=== PATIENT | male | born 1950 | race Caucasian/White ===

== ENCOUNTER 2024-01-10 06:54 | Outpatient (OUT) | payer MEDICARE, SELFPAY ==
--- NOTE | 2024-01-10 07:04 | CA_ITS ---
Patient Name: ROXANA RAGLAND MR#: [id number] : 1950 Exam Date: 01/10/2024 Ordering Doctor: DR COY SIMONS M.D. ECHOCARDIOGRAM REPORT PROCEDURE: CA ECHO DOPPLER COMPLETE INDICATIONS: Nonrheumatic AoV Stenosis, Shortness of breath COMPARISON: None. DESCRIPTION: COMPLETE ECHOCARDIOGRAM Real-time transthoracic echocardiography with 2D, M-mode, spectral and color flow Doppler performed. QUALITY: Technical quality was good. LEFT VENTRICLE: Normal chamber size. Moderate concentric left ventricular hypertrophy. Global left ventricular systolic function is normal. LV EF: Visual estimation of left ventricular ejection fraction is 65% DIASTOLIC: Diastolic function is indeterminate. ATRIAL SEPTUM: LEFT ATRIUM: Mild dilatation. RIGHT ATRIUM: Mild dilatation. RIGHT VENTRICLE: Normal chamber size. Normal right ventricular systolic function. TRICUSPID VALVE: Normal mobility and thickness. No stenosis with mild to moderate regurgitation. No evidence of pulmonary hypertension. RVSP 34 mmHg MITRAL VALVE: Normal mobility and thickness. No evidence of mitral valve stenosis. There is no mitral annular calcification. Mild mitral regurgitation. AORTIC VALVE: Normal trileaflet appearance. Moderately calcified aortic valve. Moderately diminished mobility. Doppler velocity suggests moderate aortic valve stenosis. DVI 0.3, GUSTAVO 1.0 cm?, Vmax 3.1 m/s, Mean gradient 22 mmHg. No aortic regurgitation. AORTIC ROOT: Normal diameter and appearance. PULMONIC VALVE: Normal thickness and mobility. No stenosis. Trivial regurgitation. PERICARDIUM: No evidence of pericardial effusion. IVC: Collapses with inspirations. Normal size. PLEURA: CONCLUSION: 1. Moderate concentric left ventricular hypertrophy with normal systolic function. LVEF is estimated at 65%. 2. Normal right ventricular size and systolic function. 3. Moderate aortic valve stenosis. 4. Mild to moderate tricuspid regurgitation. 5. Mild mitral regurgitation. 6. Normal right-sided pressures. Adult Echocardiography Procedure Report Left Ventricle LVEDD (3.7 - 5.6 cm): 4.18 cm LVESD (2.2 - 4.0 cm): 2.58 cm LVIVS thickness (0.6 - 1.2 cm): 1.36 cm LVPW thickness (0.5 - 1.0 cm): 1.22 cm e': 0.09 m/s E - e': 7.47 LVOT Max Gradient: 3.42 mm[Hg] LVOT Area (cm2): 0.92 m/s Peak Velocity (LVOT): 0.92 m/s Mean Velocity (LVOT): 0.62 m/s LVOT Diameter 1.98 cm Left Ventricular Ejection Fraction: 72.59 % Left Atrium LA Volume Index (2D A2C): 21.79 ml/m2 Left Atrium Systolic Dimension: 2.93 cm Mitral Valve MV E to A Ratio: 0.92 Mitral Valve A-Wave Peak Velocity: 0.70 m/s Mitral Valve E-Wave Peak Velocity: 0.65 m/s Right Ventricle RV Internal Diastolic Dimension: 3.82 cm Aorta AO Root Diam: 3.20 cm Ascending Ao Diam: 2.63 cm Aortic Valve AoV Area (Peak Win): 0.93 cm2, 0.91 cm2 AoV Area (VTI): 1.00 cm2, 0.95 cm2 Peak Velocity(Antegrade Flow): 3.13 m/s, 2.93 m/s, 3.15 m/s Peak Gradient(Antegrade Flow): 39.30 mm[Hg], 34.31 mm[Hg], 39.69 mm[Hg] Mean Velocity(Antegrade Flow): 2.22 m/s, 2.03 m/s, 2.10 m/s Mean Gradient(Antegrade Flow): 21.96 mm[Hg], 18.44 mm[Hg], 20.11 mm[Hg] Velocity Time Integral: 74.67 cm, 66.00 cm, 71.18 cm Tricuspid Valve Peak Velocity (Regurgitant Flow): 2.76 m/s, 2.71 m/s, 2.44 m/s Pulmonic Valve Mean Gradient: 2.02 mm[Hg], 1.70 mm[Hg] Mean Velocity: 0.66 m/s, 0.60 m/s Peak Velocity: 0.93 m/s Peak Gradient: 3.47 mm[Hg], 3.47 mm[Hg] Right Atrium Right Atrium Systolic Pressure: 63.26 ml, 63.26 ml Dictated by: Coy Simons M.D. on 01/10/2024 at 17:44 Approved by: Coy Simons M.D. on 01/10/2024 at 17:48
== END 2024-01-10 06:55 | disposition home or self-care (01) ==
LOC: CARD 06:55
PROVIDERS: PCP Family Medicine; Visit Provider Internal Medicine Interventional Cardiology
DX: I35.0 Nonrheumatic aortic (valve) stenosis (principal); R06.02 Shortness of breath
CPT/HCPCS: 93306

== ENCOUNTER 2024-01-14 07:40 | Outpatient (OUT) | payer MEDICARE, SELFPAY ==
[2024-01-14 08:30] LABS: Chol HDL Ratio 2.3; Cholesterol 151 mg/dL (<=200); HDL Cholesterol 65 mg/dL (40-60); Triglycerides 76 mg/dL (<=150); VLDL CHOLESTEROL 15.2 mg/dL
== END 2024-01-14 07:41 | disposition home or self-care (01) ==
LOC: LAB 07:42
PROVIDERS: PCP Family Medicine; Visit Provider Internal Medicine Interventional Cardiology
DX: E78.2 Mixed hyperlipidemia (principal)
CPT/HCPCS: 36415; 80061

== ENCOUNTER 2024-07-14 09:59 | Outpatient (OUT) | payer MEDICARE, SELFPAY ==
--- NOTE | 2024-07-14 10:00 | CA_ITS ---
Patient Name: ROXANA RAGLAND MR#: [id number] : 1950 Exam Date: 07/14/2024 Ordering Doctor: DR COY LAND M.D. ECHOCARDIOGRAM REPORT PROCEDURE: CA ECHO DOPPLER COMPLETE INDICATIONS: Aortic valve stenosis COMPARISON: None. DESCRIPTION: COMPLETE ECHOCARDIOGRAM Real-time transthoracic echocardiography with 2D, M-mode, spectral and color flow Doppler performed. QUALITY: Technical quality was good. LEFT VENTRICLE: Normal chamber size. Mildly thickened septal wall. LV EF: Normal left ventricular ejection fraction 65%, no regional wall motion abnormalities DIASTOLIC: Normal diastolic function. ATRIAL SEPTUM: Visually appears intact. LEFT ATRIUM: Normal chamber size. RIGHT ATRIUM: Normal chamber size. RIGHT VENTRICLE: Normal chamber size. TRICUSPID VALVE: Normal mobility and thickness. No stenosis with mild regurgitation. No evidence of pulmonary hypertension.RVSP 34 mmHg MITRAL VALVE: Normal mobility and thickness. No evidence of mitral valve stenosis. Mild mitral annular calcification. Trivial mitral regurgitation. AORTIC VALVE: Normal trileaflet appearance. Moderately calcified aortic valve. Moderately diminished mobility. Doppler velocity suggests mild -moderate aortic valve stenosis.Mean PG 15 mmHg, DVI 0.3, GUSTAOV 1.8 cm2. No aortic regurgitation. AORTIC ROOT: Normal diameter and appearance. Ascending aorta is normal in size PULMONIC VALVE: Normal thickness and mobility. No stenosis. Trivial regurgitation. PERICARDIUM: No evidence of pericardial effusion. IVC: Collapes with inspirations. IVC is normal in size. PLEURA: CONCLUSION: Normal left ventricular systolic function without wall motion abnormalities, ejection fraction 65% Normal diastolic function Normal right ventricle size and systolic function Normal right-sided pressures Mild to moderate aortic stenosis, mean pressure gradient 15 mmHg, aortic valve area 1.8 cm?, DVI 0.3 Mild mitral annulus calcification Mild tricuspid regurgitation Adult Echocardiography Procedure Report Left Ventricle LVEDD (3.7 - 5.6 cm): 4.48 cm LVESD (2.2 - 4.0 cm): 3.10 cm LVIVS thickness (0.6 - 1.2 cm): 1.38 cm LVPW thickness (0.5 - 1.0 cm): 1.02 cm e': 0.07 m/s E - e': 9.20 LVOT Max Gradient: 3.26 mm[Hg] LVOT Area (cm2): 0.90 m/s Peak Velocity (LVOT): 0.90 m/s Mean Velocity (LVOT): 0.49 m/s LVOT Diameter 2.65 cm Left Ventricular Ejection Fraction: Left Atrium LA Volume Index (2D A2C): 20.69 ml/m2 Left Atrium Systolic Dimension: 2.89 cm Mitral Valve MV E to A Ratio: 0.83 MV Max Gradient: MV Mean Gradient: Mitral Valve A-Wave Peak Velocity: 0.75 m/s Mitral Valve E-Wave Peak Velocity: 0.63 m/s Cardiovascular Orifice Area: Right Ventricle RV Internal Diastolic Dimension: Aorta AO Root Diam: 3.41 cm Ascending Ao Diam: 2.95 cm Aortic Valve AoV Area (Peak Win): 1.73 cm2, 1.73 cm2 AoV Area (VTI): 1.85 cm2, 1.85 cm2 Deceleration [place]: Pressure Half-Time: Peak Velocity(Antegrade Flow): 2.88 m/s, 2.86 m/s Peak Gradient(Antegrade Flow): 33.10 mm[Hg], 32.80 mm[Hg] Mean Velocity(Antegrade Flow): 1.71 m/s, 1.79 m/s Mean Gradient(Antegrade Flow): 14.80 mm[Hg], 15.29 mm[Hg] Velocity Time Integral: 65.15 cm, 60.08 cm Tricuspid Valve Peak Velocity (Regurgitant Flow): 2.80 m/s, 2.72 m/s, 2.46 m/s Peak Velocity: Pulmonic Valve Mean Gradient: 1.30 mm[Hg] Mean Velocity: 0.54 m/s Peak Velocity: 0.73 m/s, 0.74 m/s Peak Gradient: 2.17 mm[Hg], 2.11 mm[Hg] Right Atrium Right Atrium Systolic Pressure: 52.66 ml, 52.66 ml Dictated by: Kyler Curry MD on 07/14/2024 at 19:02 Approved by: Kyler Curry MD on 07/14/2024 at 19:14
[2024-07-14 11:08] LABS: Chol HDL Ratio 2.9; Cholesterol 181 mg/dL (<=200); HDL Cholesterol 63 mg/dL (40-60); Triglycerides 80 mg/dL (<=150)
== END 2024-07-14 10:00 | disposition home or self-care (01) ==
LOC: CARD 09:59
PROVIDERS: PCP Family Medicine; Visit Provider Internal Medicine Interventional Cardiology
DX: I35.0 Nonrheumatic aortic (valve) stenosis (principal); E78.2 Mixed hyperlipidemia
CPT/HCPCS: 36415; 80061; 93306

== ENCOUNTER 2025-01-15 10:26 | Outpatient (OUT) | payer MEDICARE, SELFPAY ==
--- OUTSIDE RECORDS SUMMARY | 2025-01-15 10:47 | XMS_ITS | CCD ---
Author Organization [facility] Care Team Providers Care Sugar Controller Name Role Phone COY LAND Attending Unavailable TEDDYUKASONYA, COY Admitting Unavailable WEST, DR BA Barragan Consulting Unavailable DUTTON, DR SUZANNE Pfeiffer Primary Care Unavailable MOUKARBPHILIPP, COY Consulting Unavailable DUTTON, DR SUZANNE Pfeiffer Attending Unavailable ZIEBKEVIN, DR URIAH Turcios Consulting Unavailable DUTTON, DR SUZANNE Pfeiffer Primary Care Unavailable DUTTON, DR SUZANNE Pfeiffer Admitting Unavailable DUTTON, DR SUZANNE Pfeiffer Consulting Unavailable DUTTON, DR SUZANNE Pfeiffer Primary Care Unavailable EDUARDO, NORMA Admitting Unavailable EDUARDO, NORMA Attending Unavailable EDUARDO, NORMA Consulting Unavailable DUTTON, DR SUZANNE Pfeiffer Primary Care Unavailable ZIEBER, DR URIAH Turcios Consulting Unavailable KATKOLU Admitting Unavailable KATKO, LU Garcia Attending Unavailable GRECHNY ., HASEEB GUPTA Consulting Unavailabl e DUTTON, DR SUZANNE Pfeiffer Attending Unavailable DUTTON, DR SUZANNE Pfeiffer Primary Care Unavailable DUTTON, DR SUZANNE Pfeiffer Admitting Unavailable MOUKARBEL, COY Admitting Unavailable MOUKASONYA, COY Attending Unavailable TEDDYUKACOY HASSAN Consulting Unavailable DUTTON, DR SUZANNE Pfeiffer Primary Care Unavailable Dutton, Suzanne Unavailable COY LAND Attending Unavailable MOUKARBPHILIPP, COY Attending Unavailable Allergies Allergy Classification Reported Allergen(s) Allergy Type Date of Onset Reaction(s) Facility (1 source) patient allergy list reviewed by nurse or physicia Propensity to adverse reactions 8 Comment:Done [employer] Other (1 source) Allergies Reconciled Propensity to adverse reactions Unknown [employer] Other Medications Current Medications Medication Drug Class(es) Dates Sig (Normalized) Sig (Original) atorvastatin 40 mg oral tablet (1 source) HMG-CoA Reductase Inhibitor take 1 tablet by mouth once daily Atorvastatin Calcium 40 MG TAKE 1 TABLET BY MOUTH EVERY DAY for 90 Active ciprofloxacin 3 mg/ml / dexamethasone 1 mg/ml otic suspension (1 source) Corticosteroid, Quinolone Antimicrobial Ciprofloxacin-dexA METHasone 0.3-0.1 % 4 drops into affected ear Otic Twice a day for 7 days Active Docusate (1 source) Colace Active latanoprost (1 source) Prostaglandin Analog Start: 03-13-2022 Latanoprost 0.005% Latanoprost( 0.005% Ophthalmic ) Active -Hx Entry Ophthalmic for 0 *Pick strength-form from [facility] for eRX* Feb, Active lisinopril 20 mg oral tablet (1 source) Angiotensin Converting Enzyme Inhibitor take 1 tablet by mouth every twenty-four hours Lisinopril 20 MG 1 tablet once a day Active metoprolol tartrate 25 mg oral tablet (1 source) beta-Adrenergic Baltazar Metoprolol Tartrate 25 MG 1/2 tablet once in am and once in pm Active Multi Complete (1 source) Multi Complete Active rivaroxaban 20 mg oral tablet (1 source) Factor Xa Inhibitor Start: 03-13-2022 take 1 tablet by mouth once daily Xarelto 20MG Xarelto 20MG, 1 (one) Tablet daily # 28, 03/13/2022, No Refill. Active Oral daily for 0 *Pick strength-form from [facility] for eRX* Feb, Active Problems Active Problems Problem Classification Problem Date Documented Da te Episodic/Chronic Acute bronchitis (1 source) Acute bronchitis; Translations: [Acute bronchitis, unspecified] Episodic Cardiac dysrhythmias (9 sources) Paroxysmal atrial fibrillation; Translations: [Unspecified atrial fibrillation] Onset: 03-13-2022 Chronic Disorders of lipid metabolism (5 sources) Mixed hyperlipidemia; Translations: [Pure hypercholesterolemi a, unspecified] Onset: 07-04-2018 Chronic Essential hypertension (4 sources) Essential (primary) hypertension; Translations: [Essential hypertension] Onset: 07-04-2018 Chronic Fever of unknown origin (1 source) Fever; Translations: [Fever, unspecified] Episodic Glaucoma (1 source) Glaucoma; Translations: [Unspecified glaucoma] Onset: 07-04-2018 Chronic Heart valve disorders (7 sources) Nonrheumatic aortic (valve) stenosis; Translations: [Rheumatic tricuspid insufficiency] Onset: 09-12-2022 Chronic Osteoarthritis (1 source) Osteoarthritis; Translations: [Unspecified osteoarthritis, unspecified site] Onset: 07-04-2018 Chronic Other circulatory disease (1 source) Elevated blood-pressure reading without diagnosis of hypertension; Translations: [Elevated blood-pressure reading, without diagnosis of hypertension] Episodic Other ear and sense organ disorders (1 source) Impacted cerumen, bilateral Episodic Peripheral and visceral atherosclerosis (3 sources) Unspecified atherosclerosis; Translations: [Peripheral vascular disease, unspecified] Onset: 03-31-2022 Chronic Residual codes; unclassified (1 source) Normal body mass index; Translations: [Body mass index (BMI) 21.0-21.9, adult] Episodic Substance-related disorders (2 sources) Nicotine dependence, cigarettes, uncomplicated; Translations: [Tobacco user] Onset: 07-04-2018 Chronic Unclassified (1 source) CONTACT W/AND (SUSP) EXPOS COVID-19; Translations: [CONTACT W/AND (SUSP) EXPOS COVID-19] Onset: 03-13-2022 Past or Other Problems Problem Classification Problem Date Documented Date Episodic/Chronic Cardiac dysrhythmias (3 sources) Palpitations; Translations: [PALPITATIONS] Onset: 03-09-2022 Episodic Other lower respiratory disease (4 sources) Shortness of breath; Translations: [SHORTNESS OF BREATH] Onset: 06-05-2022 Episodic Other lower respiratory disease (4 sources) Other forms of dyspnea; Translations: [OTHER FORMS OF DYSPNEA] Onset: 04-04-2022 Episodic Other screening for suspected conditions (not mental disorders or infectious disease) (2 sources) Abnormal result of other cardiovascular function study; Translations: [Abnormal electrocardiogram [ECG] [EKG]] Onset: 04-06-2022 Episodic Results Test Name Value Interpretation Reference Range Facility Office [facility] 01-05-2025 Follow-up visit [id number] Cullen Ragland 1950 M Date Provider Department Center 01/05/2025 COY FLORES Family History Problem Relation Age of Onset Stroke Mother Heart failure Mother Family Status - Relation Status Age at Mother Father Level of Service:49650 DC OFFICE/OUTPATIENT ESTABLISHED MOD MDM 30 MIN Normal [facility] Office [facility] 01-14-2024 Follow-up visit [id number] Cullen Ragland 1950 M Date Provider Department Center 01/14/2024 COY FLORES [facility] Family History Problem Relation Age of Onset Stroke Mother Heart failure Mother Family Status - Relation Status Age at Mother Level of Service:80348 DC OFFICE/OUTPATIENT ESTABLISHED MOD MDM 30 MIN Normal [facility] ECHOCARDIO M/2D COMPLETEon 0 12-12-2022 ECHOCARDIO M/2D COMPLETE Patient: CULLEN RAGLAND Exam Date: 12/12/2022 : 1950 Gender:M Ordering : NORMA CLARK Admission #: [id number] Family : Order #: [id number] CLICK HERE TO VIEW EXAM ECHOCARDIOGRAM REPORT PROCEDURE: CARDIO PULMONARY ECHOCARDIO M/2D COMP INDICATIONS: Nonrheumatic aortic valve stenosis COMPARISON: None. DESCRIPTION: COMPLETE ECHOCARDIOGRAM Real-time transthoracic echocardiography with 2D, M-mode, spectral and color flow Doppler performed. QUALITY: Technical quality was good. LEFT VENTRICLE: Normal chamber size. Moderate concentric left ventricular hypertrophy. Systolic function is normal. LV EF: Visual estimation of left ventricular ejection fraction is normal at 65-70%. DIASTOLIC: Normal diastolic function. ATRIAL SEPTUM: LEFT ATRIUM: Normal chamber size. RIGHT ATRIUM: Mild dilatation. Prominent eustachian valve is seen. RIGHT VENTRICLE: Normal chamber size. Normal right ventricular systolic function. TRICUSPID VALVE: Normal mobility and thickness. No stenosis with mild regurgitation. Mild pulmonary hypertension. RVSP 36 mmHg MITRAL VALVE: Mildly thickened with normal mobility. No evidence of mitral valve stenosis. Mild mitral annular calcification. Trivial mitral regurgitation. AORTIC VALVE: Moderately calcified aortic valve. Moderately diminished mobility. Doppler velocity suggest moderate aortic valve stenosis. GUSTAVO 1.1 cm2, Mean gradient 17 mmHg, Max velocity 2.9 m/s, DVI 0.35. The aortic valve appears tricuspid, but functions as a bicuspid valve. No aortic regurgitation. AORTIC ROOT: Normal diameter and appearance. PULMONIC VALVE: Normal thickness and mobility. No stenosis. Trivial regurgitation. PERICARDIUM: No evidence of pericardial effusion. IVC: Collapses with inspirations. Normal size. PLEURA: CONCLUSION: 1. Moderate concentric left ventricular hypertrophy with normal systolic function. LVEF is 65 to 70%. 2. Normal right ventricular size and systolic function. 3. Moderate aortic valve stenosis. Likely trileaflet aortic valve. 4. Mild tricuspid regurgitation. 5. Mildly elevated right-sided pressures. Adult Echocardiography Procedure Report Left Ventricle Left Atrium LA Volume Index (2D A2C): 45.88 ml, 45.88 ml Mitral Valve Right Ventricle Aorta Aortic Valve AoV Area (Peak Win): 1.14 cm2, 1.13 cm2 AoV Area (VTI): 1.39 cm2, 1.39 cm2 Tricuspid Valve Pulmonic Valve Peak Velocity: 1.12 m/s, 1.08 m/s Peak Gradient: 4.82 mm[Hg] Right Atrium Dictated by: Coy Land M.D. on 12/12/2022 at 17:57 Approved by: Coy Land M.D. on 12/12/2022 at 18:04 Normal [facility] CBC AUTO DIFFon 06-05-2022 BASO # 0.0 103/ul Normal 0.0-0.1 [facility] Comment on above: Performed By: #### C BC ####[facility] [address] [address]DrPhani Abdi Basophils/100 WBC (Bld) 0.3 % Normal 0.2-2.0 [facility] Comment on above: Performed By: #### C BC ####[facility] [address] [place], [place] [address]DrPhani Abdi EO # 0.1 103/ul Normal 0.0-0.7 [facility] Comment on above: Performed By: #### C BC ####[facility] [address] [address]DrPhani Abdi Eosinophils/100 WBC (Bld) 0.8 % Critically low 0.9-7.0 [facility] Comment on above: Performed By: #### C BC ####[facility] [address] [place], [place] [address]DrPhani Abdi Erythrocyte distribution width (RBC) [Ratio] 14.4 % Normal 11.0-15.0 [facility] Comment on above: Performed By: #### C BC ####[facility] [address] [place], [place] [address]DrPhani Abdi Hematocrit (Bld) [Volume fraction] 39.8 % Critically low 42.0-54.0 [facility] Comment on above: Performed By: #### C BC ####[facility] [address] [address]DrPhani Abdi Hemoglobin (Bld) [Mass/Vol] 14.2 g/dL Normal 14.0-18.0 [facility] Comment on above: Performed By: #### C BC ####[facility] [address] [place] [address]DrPhani Abdi IG # 0.05 10e3/ul Critically high 0.00-0.03 [facility] Comment on above: Performed By: #### C BC ####[facility] [address] [place], [place] [address]DrPhani Abdi IG % 0.4 % Normal 0.0-0.5 [facility] Comment on above: Performed By: #### C BC ####[facility] [address] [place], [place] [address]DrPhani Abdi LYMPH # 4.1 103/ul Critically high 1.2-3.8 [facility] Comment on above: Performed By: #### C BC ####[facility] [address] [place], [place] [address]DrPhani Abdi Lymphocytes/100 WBC (Bld) 34.7 % Normal 20.5-60.0 [facility] Comment on above: Performed By: #### C BC ####[facility] [address] [place], [place] [address]DrPhani Abdi MANUAL DIFF REQ NO Normal [facility] Comment on above: Performed By: #### C BC ####[facility] [address] [place], [place] [address]DrPhani Abdi MCH (RBC) [Entitic mass] 31.8 pg Normal 25.9-34.0 [facility] Comment on above: Performed By: #### C BC ####[facility] [address] [place], [place] [address]DrPhani Abdi MCHC (RBC) [Mass/Vol] 35.7 g/dL Critically high 29.9-35.2 [facility] Comment on above: Performed By: #### C BC ####[facility] [address] [place] [address]DrPhani Abdi MCV (RBC) [Entitic vol] 89.0 fL Normal 80.0-94.0 [facility] Comment on above: Performed By: #### C BC ####[facility] [address] [place], [place] [address]DrPhani Abdi MONO # 0.9 103/ul Critically high 0.3-0.8 [facility] Comment on above: Performed By: #### C BC ####[facility] [address] [place], [place] [address]DrPhani Abdi Monocytes/100 WBC (Bld) 7.2 % Normal 1.7-12.0 [facility] Comment on above: Performed By: #### C BC ####[facility] [address] [place], [place] [address]DrPhani Abdi NEUT # 6.7 103/ul Critically high 1.4-6.5 [facility] Comment on above: Performed By: #### C BC ####[facility] [address] [place], [place] [address]DrPhani Abdi Neutrophils/100 WBC (Bld) 56.6 % Normal 43.0-75.0 [facility] Comment on above: Performed By: #### C BC ####[facility] [address] [place], [place] [address]DrPhani Abdi Platelet mean volume (Bld) [Entitic vol] 9.4 fL Critically low 9.5-13.5 [facility] Comment on above: Performed By: #### C BC ####[facility] [address] [place], [place] [address]DrPhani Abdi PLT 325 103/ul Normal 150-450 [facility] Comment on above: Performed By: #### C BC ####[facility] [address] [place], [place] [address]DrPhani Abdi RBC 4.47 106/ul Critically low 4.70-6.10 [facility] Comment on above: Performed By: #### C BC ####[facility] [address] [place] [address]Dr. Hayley Abdi WBC 11.9 103/ul Critically high 4.0-11.0 [facility] Comment on above: Performed By: #### C BC ####[facility] [address] [place] [address]Dr. Hayley Abdi PROF CHEM 8 (BAS METB)on Anion gap [Moles/Vol] 8.2 mmol/L Normal [facility] Comment on above: Performed By: #### B MP #### [facility] [address] [address] [address] Hayley Abdi Calcium [Mass/Vol] 9.2 mg/dL Normal 8.5-10.1 [facility] Comment on above: Performed By: #### B MP #### [facility] [address] [address] [address] Hayley Abdi Chloride [Moles/Vol] 102 mmol/L Normal 98-107 [facility] Comment on above: Performed By: #### B MP #### [facility] [address] [address] [address] Hayley Abdi CO2 [Moles/Vol] 30.9 mmol/L Normal 21.0-32.0 [facility] Comment on above: Performed By: #### B MP #### [facility] [address] [address] [address] Hayley Abdi Creatinine [Mass/Vol] 0.84 mg/dL Normal 0.70-1.30 [facility] Comment on above: Performed By: #### B MP #### [facility] [address] [address] [address] Hayley Abdi EGFR-AF ESTONIAN >60 Normal >=60 [facility] Comment on above: Performed By: #### B MP #### [facility] [address] [address] [address] Hayley Abdi EGFR-NON AF ESTONIAN >60 Normal >=60 [facility] Comment on above: Performed By: #### B MP #### [facility] [address] [address] [address] Hayley Abdi Glucose [Mass/Vol] 100 mg/dL Normal 74-106 [facility] Comment on above: Performed By: #### B MP #### [facility] [address] [address] [address] Hayley Abdi Potassium [Moles/Vol] 4.1 mmol/L Normal 3.5-5.1 [facility] Comment on above: Performed By: #### B MP #### [facility] [address] [address] [address] Hayley Abdi Sodium [Moles/Vol] 137 mmol/L Normal 136-145 [facility] Comment on above: Performed By: #### B MP #### [facility] [address] [address] [address] Hayley Abdi Urea nitrogen [Mass/Vol] 12.0 mg/dL Normal 7.0-18.0 [facility] Comment on above: Performed By: #### B MP #### [facility] [address] [address] [address] Hayley Abdi Urea nitrogen/Creatinine [Mass ratio] 14.3 mg/mg Normal [facility] Comment on above: Performed By: #### B MP #### [facility] [address] [address] [address] Hayley Abdi LIPID PROFILEon 04-04-2022 CHOL-HDL RATIO NORM SEE BELOW Normal [facility] Comment on above: Result Comment: 3.3 - 4.4 LOW RISK 4.4 - 7.1 AVERAGE RISK 7.1 - 11.0 MODERATE RISK >11.0 HIGH RISK Performed By: #### L IPID #### [facility] [address] [address] [address] Hayley Abdi Cholesterol [Mass/Vol] 151 mg/dL Normal <=200 [facility] Comment on above: Performed By: #### L IPID #### [facility] [address] [address] [address] Hayley Abdi Cholesterol in HDL [Mass/Vol] 66 mg/dL Critically high 40-60 [facility] Comment on above: Performed By: #### L IPID #### [facility] [address] [address] [address] Hayley Abdi Cholesterol in LDL [Mass/Vol] 73.6 mg/dL Normal [facility] Comment on above: Performed By: #### L IPID #### [facility] [address] [address] [address] Hayley Abdi Cholesterol.total/C holesterol in HDL [Mass ratio] 2.3 {ratio} Normal [facility] Comment on above: Performed By: #### L IPID #### [facility] [address] [address] [address] Hayley Abdi HDL NORMAL > or = 60 mg/dl - LO W CARDIOVASCULAR RISK <40 mg/dl - HIGH CARDIOVASCULAR RISK Normal [facility] Comment on above: Performed By: #### L IPID #### [facility] [address] [address] [address] Hayley Abdi LDL CALC NORMAL SEE BELOW Normal [facility] Comment on above: Result Comment: <100 mg/dl OPTIMAL 100 - 129 mg/dl NEAR OR ABOVE OPTIMAL 130 - 159 mg/dl BORDERLINE HIGH 160 - 189 mg/dl HIGH >190 mg/dl VERY HIGH Performed By: #### L IPID #### [facility] [address] [address] [address] Hayley Abdi Triglyceride [Mass/Vol] 57 mg/dL Normal <=150 [facility] Comment on above: Performed By: #### L IPID #### [facility] [address] [address] [address] Hayley Abdi VLDL CALC 11.4 mg/dL Normal [facility] Comment on above: Performed By: #### L IPID #### [facility] [address] [place] [address] Dr. Hayley Abdi NM STRESS/REST MULTIon 04-04 NM STRESS/REST MULTI Patient: CULLEN RAGLAND Exam Date: 04/04/2022 : 1950 Gender:M Ordering : DR COY LAND M.D. Admission #: [id number] Family : Order #: [id number] CLICK HERE TO VIEW EXAM RADIOLOGY REPORT PROCEDURE: RADIONUCLIDE IMAGING STRESS/REST MULTI COMPARISON: None. INDICATIONS: Dyspnea on exertion TECHNIQUE: Exam Description: Stress/Rest one day protocol gated SPECT Rest Imagin.7 mCi Tc-99m Cardiolite IV on 04/04/2022 Stress Imaging 31.1 mCi Tc-99m Cardiolite IV on 04/04/2022 Exercise Protocol: Osei Heart Rate (bpm): Rest: 56 Max: 130 PMHR: 87 Blood Pressure: Rest: 160/90 Max: 178/90 Exercise Time: Minutes: 9 Seconds: 30 Stage Reached: Stage: 3 Mets 10.1 Symptoms: Rest and peak stress ECG findings were abnormal and the exercise portion of the study was abnormal per attending physician Dr. Wallace due to EKG changes. For more details please see separate cardiac stress test report. FINDINGS: QUALITY OF STUDY: Excellent. PERFUSION DEFECT: None. LOCATION: N/A SIZE: N/A. SEVERITY: N/A. TYPE: N/A. WALL MOTION: Normal. LV SIZE: Normal. 84 mL. TID / TCD: None; 0.8 LVEF: Normal. Calculated EF 73%. SUMMARY: Myocardial perfusion imaging study is NORMAL. CONCLUSION: 1. No reversible ischemia 2. Abnormal exercise test secondary to EKG changes Dictated by: Ba Toney MD on 04/05/2022 at 08:11 Approved by: Ba Toney MD on 04/05/2022 at 08:13 Normal [facility] US ABD AORTA SCREENINGon ABD AORTA SCREENING EXAMINATION: US ABD AORTA SCREENING HISTORY: Smoker COMPARISON: No relevant comparison available. TECHNIQUE: Ultrasound examination of the retroperitoneal area was performed, with a focused evaluation of the abdominal aorta. FINDINGS: Proximal aorta: 2.7 x 2.3 cm Mid aorta: 2.0 x 2.4 cm Distal aorta: 1.8 x 2.4 cm maximum Right common iliac artery: 1.4 x 1.6 cm The left common iliac artery: 1.4 x 1.3 cm Mild diffuse atherosclerosis IMPRESSION: Atherosclerosis with no abdominal aortic aneurysm Electronically authenticated by: BA TONEY Date: 2022-04-04 09:28 Normal [facility] CT LUNG CANCER SCREENINGon 0 03-24-2022 CT LUNG CANCER SCREENING EXAMINATION: CT LUNG CANCER SCREENING HISTORY: Tobacco dependence caused by cigarettes COMPARISON: No relevant comparison available. TECHNIQUE: Axial, Coronal, and Sagittal images were created without the administration of IV contrast material. Dose reduction techniques were achieved by using automated exposure control and/or adjustment of mA and/or kV according to patient size and/or use of iterative reconstruction technique. FINDINGS: LUNGS: Several small spiculated opacities within the medial basilar segment of the left lower lobe, largest is 10 mm. Mucous plugging of several small bronchi extending into these areas. Minimal emphysematous changes bilaterally. PLEURA: No mass, effusion, or pneumothorax. VASCULATURE: No abnormality. HOMERO: No mass or pathologic adenopathy. MEDIASTINUM: No mass or pathologic adenopathy. CARDIAC: Atherosclerotic coronary artery disease. No significant cardiac enlargement or pericardial effusion. AORTA: No aneurysm or dissection. CHEST WALL: No mass or axillary adenopathy BONES: No bone lesion or fracture. LIMITED ABDOMEN: No suspicious findings. Limited images of the upper abdomen. OTHER: Negative. IMPRESSION: 1. LUNG SCREENING: Lung-RADS Category 4A- Suspicious. Findings for which additional diagnostic testing and/ or tissue sampling is recommended. 3 month LDCT; PET/CT may be used when there is a >= 8 mm solid component. 2. The spiculated opacities within the medial basilar segment of the left lower lobe likely represent areas of atelectasis secondary to mucous plugging. Consider follow-up CT imaging in 3 months with patient effort to have full lung expansion. Alternatively, PET imaging could be performed at this time. 3. Minimal emphysematous changes. Electronically authenticated by: URIAH RUIZ Date: 2022-03-24 11:48 Normal [facility] ECHOCARDIO M/2D COMPLETEon 0 03-24-2022 ECHOCARDIO M/2D COMPLETE Patient: CULLEN RAGLAND Exam Date: 03/24/2022 : 1950 Gender:M Ordering : DR SUZANNE DUTTON M.D. Admission #: [id number] Family : Order #: [id number] CLICK HERE TO VIEW EXAM ECHOCARDIOGRAM REPORT PROCEDURE: CARDIO PULMONARY ECHOCARDIO M/2D COMP INDICATIONS: Afib COMPARISON: None. DESCRIPTION: COMPLETE ECHOCARDIOGRAM Real-time transthoracic echocardiography with 2D, M-mode, spectral and color flow Doppler performed. QUALITY: Technical quality was good. LEFT VENTRICLE: Normal chamber size. Mild concentric left ventricular hypertrophy. LV EF: Global left ventricular systolic function is normal. Calculated left ventricular ejection fraction is 63% DIASTOLIC: Normal diastolic function. ATRIAL SEPTUM: Inadequately seen. LEFT ATRIUM: Normal chamber size. RIGHT ATRIUM: Mild dilatation. RIGHT VENTRICLE: Normal chamber size. Normal right ventricular systolic function. TRICUSPID VALVE: Normal mobility and thickness. No stenosis with mild regurgitation. Mild pulmonary hypertension. RVSP 37mmHg MITRAL VALVE: Normal mobility and thickness. No mitral valve prolapse. No evidence of mitral valve stenosis. Mild mitral annular calcification. Mild mitral regurgitation. AORTIC VALVE: Normal trileaflet appearance. Moderately calcified aortic valve. Moderately diminished mobility. Doppler velocity suggest moderate aortic valve stenosis. DVI 0.3. No aortic regurgitation. AORTIC ROOT: Normal diameter and appearance. PULMONIC VALVE: Normal thickness and mobility. No stenosis. Trivial regurgitation. PERICARDIUM: No evidence of pericardial effusion. IVC: Partial collapse, normal in size. CONCLUSION: Global left ventricular systolic function is normal; visually estimated ejection fraction is 60 to 65%. Mild left ventricular hypertrophy. Right atrium is mildly dilated. The right ventricle is normal in size and systolic function. Mild tricuspid regurgitation. Right ventricular systolic pressure is mildly elevated. Mild mitral regurgitation. Moderate aortic stenosis. Adult Echocardiography Procedure Report Left Ventricle Left Atrium Mitral Valve Right Ventricle RV Internal Diastolic Dimension: 3.82 cm Aorta Aortic Valve Peak Velocity (Antegrade Flow): 2.62 m/s, 2.85 m/s AoV Area (Peak Win): 1.08 cm2, 1.08 cm2, 0.99 cm2, 0.99 cm2 AoV Area (VTI): 1.18 cm2, 1.18 cm2 Tricuspid Valve Peak Velocity (Regurgitant Flow): 2.68 m/s, 2.71 m/s, 2.74 m/s Pulmonic Valve Mean Gradient: 1.77 mm[Hg] Mean Velocity: 0.62 m/s Peak Velocity: 0.87 m/s Peak Gradient: 3.06 mm[Hg] Right Atrium Dictated by: Rolanda Bonner M.D. on 03/24/2022 at 15:01 Approved by: Rolanda Bonner M.D. on 03/24/2022 at 15:09 Normal [facility] CBC AUTO DIFFon 03-09-2022 BASO # 0.0 103/ul Normal 0.0-0.1 [facility] Comment on above: Performed By: #### C BC #### [facility] [address] [address] [address] Hayley Abdi Basophils/100 WBC (Bld) 0.3 % Normal 0.2-2.0 [facility] Comment on above: Performed By: #### C BC #### [facility] [address] [address] [address] Hayley Abdi EO # 0.2 103/ul Normal 0.0-0.7 [facility] Comment on above: Performed By: #### C BC #### [facility] [address] [place] [address] Dr. Hayley Abdi Eosinophils/100 WBC (Bld) 1.7 % Normal 0.9-7.0 [facility] Comment on above: Performed By: #### C BC #### [facility] [address] [place] [address] Dr. Hayley Abdi Erythrocyte distribution width (RBC) [Ratio] 14.3 % Normal 11.0-15.0 [facility] Comment on above: Performed By: #### C BC #### [facility] [address] [place] [address] Dr. Hayley Abdi Hematocrit (Bld) [Volume fraction] 40.6 % Critically low 42.0-54.0 [facility] Comment on above: Performed By: #### C BC #### [facility] [address] [place] [address] Dr. Hayley Abdi Hemoglobin (Bld) [Mass/Vol] 14.6 g/dL Normal 14.0-18.0 [facility] Comment on above: Performed By: #### C BC #### [facility] [address] [place] [address] Dr. Hayley Abdi IG # 0.05 10e3/ul Critically high 0.00-0.03 [facility] Comment on above: Performed By: #### C BC #### [facility] [address] [place] [address] Dr. Hayley Abdi IG % 0.4 % Normal 0.0-0.5 [facility] Comment on above: Performed By: #### C BC #### [facility] [address] [place] [address] Dr. Hayley Abdi LYMPH # 3.4 103/ul Normal 1.2-3.8 [facility] Comment on above: Performed By: #### C BC #### [facility] [address] [place] [address] Dr. Hayley Abdi Lymphocytes/100 WBC (Bld) 30.0 % Normal 20.5-60.0 [facility] Comment on above: Performed By: #### C BC #### [facility] [address] [place] [address] Dr. Hayley Abdi MANUAL DIFF REQ NO Normal [facility] Comment on above: Performed By: #### C BC #### [facility] [address] [place] [address] Dr. Hayley Abdi MCH (RBC) [Entitic mass] 32.4 pg Normal 25.9-34.0 [facility] Comment on above: Performed By: #### C BC #### [facility] [address] [place] [address] Dr. Hayley Abdi MCHC (RBC) [Mass/Vol] 36.0 g/dL Critically high 29.9-35.2 [facility] Comment on above: Performed By: #### C BC #### [facility] [address] [place] [address] Dr. Hayley Abdi MCV (RBC) [Entitic vol] 90.2 fL Normal 80.0-94.0 [facility] Comment on above: Performed By: #### C BC #### [facility] [address] [place] [address] Dr. Hayley Abdi MONO # 1.0 103/ul Critically high 0.3-0.8 [facility] Comment on above: Performed By: #### C BC #### [facility] [address] [place] [address] Dr. Hayley Abdi Monocytes/100 WBC (Bld) 9.1 % Normal 1.7-12.0 [facility] Comment on above: Performed By: #### C BC #### [facility] [address] [place] [address] Dr. Hayley Abdi NEUT # 6.7 103/ul Critically high 1.4-6.5 [facility] Comment on above: Performed By: #### C BC #### [facility] [address] [address] [address] Hayley Abdi Neutrophils/100 WBC (Bld) 58.5 % Normal 43.0-75.0 [facility] Comment on above: Performed By: #### C BC #### [facility] [address] [place] [address] Dr. Hayley Abdi Platelet mean volume (Bld) [Entitic vol] 9.9 fL Normal 9.5-13.5 [facility] Comment on above: Performed By: #### C BC #### [facility] [address] [place] [address] Dr. Hayley Abdi PLT 305 103/ul Normal 150-450 [facility] Comment on above: Performed By: #### C BC #### [facility] [address] [place] [address] Dr. Hayley Abdi RBC 4.50 106/ul Critically low 4.70-6.10 [facility] Comment on above: Performed By: #### C BC #### [facility] [address] [place] [address] Dr. Hayley Abdi WBC 11.4 103/ul Critically high 4.0-11.0 [facility] Comment on above: Performed By: #### C BC #### [facility] [address] [place] [address] Dr. Hayley Abdi [facility]14 SARS-CoV-2 (COVID-19) RNA DEDRA+probe Ql (Unsp spec) Not detected Normal NOT DETECTED [facility] Comment on above: Result Comment: When diagnostic testing is negative, the possibility of a false negative should be considered in the context of a patient's recent exposures and the presence of clinical signs and symptoms consistent with SARS-CoV-2. This test is not yet approved or cleared by the [place] FDA. When there are no FDA-approved or cleared tests available, and other criteria are met, FDA can make tests available under an emergency access mechanism called an Emergency Use Authorization (EUA). The EUA for this test is supported by the [place] of Health and Human Service's declaration that circumstances exist to justify the emergency use of in vitro diagnostics for the detection and/or diagnosis of the virus that causes COVID-19. This EUA will remain in effect for the duration of the COVID-19 declaration justifying emergency of IVDs, unless it is terminated or revoked by the FDA (after which the test may no longer be used). Performed By: #### C VDTBH #### [facility] [address] [place] [address] Dr. Hayley Abdi PROF 14(COMP METB)on 022 Albumin [Mass/Vol] 4.0 g/dL Normal 3.4-5.0 [facility] Comment on above: Performed By: #### C MP, HSTROPN, TSH #### [facility] [address] [place] [address] Dr. Hayley Abdi Albumin/Globulin [Mass ratio] 1.1 {ratio} Normal [facility] Comment on above: Performed By: #### C MP, HSTROPN, TSH #### [facility] [address] [place] [address] Dr. Hayley Abdi ALP [Catalytic activity/Vol] 68 U/L Normal 46-116 [facility] Comment on above: Performed By: #### C MP, HSTROPN, TSH #### [facility] [address] [place] [address] Dr. Hayley Abdi ALT [Catalytic activity/Vol] 16 U/L Normal 16-63 [facility] Comment on above: Performed By: #### C MP, HSTROPN, TSH #### [facility] [address] [place] [address] Dr. Hayley Abdi Anion gap [Moles/Vol] 14.5 mmol/L Normal [facility] Comment on above: Performed By: #### C MP, HSTROPN, TSH #### [facility] [address] [place] [address] Dr. Hayley Abdi AST [Catalytic activity/Vol] 15 U/L Normal 15-37 [facility] Comment on above: Performed By: #### C MP, HSTROPN, TSH #### [facility] [address] [address] [address] Hayley Abdi Bilirubin [Mass/Vol] 1.2 mg/dL Critically high 0.2-1.0 [facility] Comment on above: Performed By: #### C MP, HSTROPN, TSH #### [facility] [address] [place] [address] Dr. Hayley Abdi Calcium [Mass/Vol] 9.1 mg/dL Normal 8.5-10.1 [facility] Comment on above: Performed By: #### C MP, HSTROPN, TSH #### [facility] [address] [place] [address] Dr. Hayley Abdi Chloride [Moles/Vol] 103 mmol/L Normal 98-107 [facility] Comment on above: Performed By: #### C MP, HSTROPN, TSH #### [facility] [address] [place] [address] Dr. Hayley Abdi CO2 [Moles/Vol] 23.5 mmol/L Normal 21.0-32.0 [facility] Comment on above: Performed By: #### C MP, HSTROPN, TSH #### [facility] [address] [place] [address] Dr. Hayley Abdi Creatinine [Mass/Vol] 0.94 mg/dL Normal 0.70-1.30 [facility] Comment on above: Performed By: #### C MP, HSTROPN, TSH #### [facility] [address] [place] [address] Dr. Hayley Abdi EGFR-AF ESTONIAN >60 Normal >=60 [facility] Comment on above: Performed By: #### C MP, HSTROPN, TSH #### [facility] [address] [address] [address] Hayley Abdi EGFR-NON AF ESTONIAN >60 Normal >=60 [facility] Comment on above: Performed By: #### C MP, HSTROPN, TSH #### [facility] [address] [address] [address] Hayley Abdi Globulin (S) [Mass/Vol] 3.5 g/dL Normal [facility] Comment on above: Performed By: #### C MP, HSTROPN, TSH #### [facility] [address] [address] [address] Hayley Abdi Glucose [Mass/Vol] 89 mg/dL Normal 74-106 [facility] Comment on above: Performed By: #### C MP, HSTROPN, TSH #### [facility] [address] [place] [address] Dr. Hayley Abdi Potassium [Moles/Vol] 4.0 mmol/L Normal 3.5-5.1 [facility] Comment on above: Performed By: #### C MP, HSTROPN, TSH #### [facility] [address] [address] [address] Hayley Abdi Protein [Mass/Vol] 7.5 g/dL Normal 6.4-8.2 The [facility] Comment on above: Performed By: #### C MP, HSTROPN, TSH #### [facility] [address] [place] [address] Dr. Hayley Abdi Sodium [Moles/Vol] 137 mmol/L Normal 136-145 [facility] Comment on above: Performed By: #### C MP, HSTROPN, TSH #### [facility] [address] [place] [address] Dr. Hayley Abdi Urea nitrogen [Mass/Vol] 15.0 mg/dL Normal 7.0-18.0 [facility] Comment on above: Performed By: #### C MP, HSTROPN, TSH #### [facility] [address] [place] [address] Dr. Hayley Adbi Urea nitrogen/Creatinine [Mass ratio] 16.0 mg/mg Normal [facility] Comment on above: Performed By: #### C MP, HSTROPN, TSH #### [facility] [address] [place], [place] [address] Dr. Hayley Abdi PROTIMEon 03-09-2022 INR Coag (PPP) [Relative time] 1.12 {INR} Normal [facility] Comment on above: Performed By: #### P TT, PT ####[facility] [id number] [id number] Hayley Abdi INR GUIDELINES SEE BELOW Normal [facility] Comment on above: Result Comment: KRIS RED INR: 2.0 - 3.0 CONDITIONS NOT LISTED BELOW 2.5 - 3.5 FOR PROSTHETIC HEART VALVE REPLACEMENT 2.5 - 3.5 RECURRENT THROMBOSIS Performed By: #### P TT, PT ####[facility] [id number] [address]Dr. Hayley Abdi PT Coag (PPP) [Time] 12.0 s Critically high 9.0-11.6 [facility] Comment on above: Performed By: #### P TT, PT ####[facility] [id number] [address]Dr. Hayley Abdi PTTon 03-09-2022 aPTT Coag (Bld) [Time] 29.4 s Normal 22.3-36.2 [facility] Comment on above: Performed By: #### P TT, PT ####[facility] [id number] [address]Dr. Hayley Abdi TROPONIN, HIGH SENSITIVITYon 03-09-2022 HSTROP 24.8 pg/mL Normal 4.0-76.1 [facility] Comment on above: Result Comment: CUT- OFF POINTS HAVE BEEN ESTABLISHED BASED ON THE FOURTH UNIVERSAL DEFINITIONS OF MYOCARDIAL INFARCTION. THE UPPER REFERENCE LIMIT (URL) OF TROPONIN, DEFINED THE 99TH PERCENTILE OF cTnI DISTRIBUTION IN A REFERENCE POPULATION, HAS BEEN CONFIRMED THE DECISION THRESHOLD FOR MT DIAGNOSIS. Performed By: #### C MP, HSTROPN, TSH ####[facility] [id number] [address]Dr. Hayley Abdi TSHon 03-09-2022 TSH 1.141 uIU/mL Normal 0.358-3.740 [facility] Comment on above: Performed By: #### C CHARLES TEJEDATROPDg, TSH ####[facility] [id number] [place], [place] [address]JwPhani Abdi XR CHEST 1 Von 03-09-2022 XR CHEST 1 V EXAMINATION: XR CHES T 1 V HISTORY: Atrial fibrillation COMPARISON: No relevant comparison available. FINDINGS: LUNGS: No significant pulmonary parenchymal abnormalities. VASCULATURE: No increased pulmonary vasculature. PLEURA: No pneumothorax, effusion, or pleural thickening. CARDIAC: No cardiomegaly or cardiac silhouette abnormality. MEDIASTINUM: No visible mass or adenopathy. BONES: No fracture or visible bone lesion. OTHER: Negative. IMPRESSION: 1. No acute cardiopulmonary process. 2. Hyperexpanded lungs. Electronically authenticated by: URIAH RUIZ Date: 2022-03-09 14:53 Normal [facility] Vital Signs Date Time Vital Sign Value Performing Clinician Facility 04-04-2023 11:00-0400 Body height 180.34 cm Suzanne Dutton Other [facility] Other 04-04-2023 11:00-0400 Body mass index (BMI) [Ratio] 22.73 kg/m2 Suzanne Dutton Other [facility] Other 04-04-2023 11:00-0400 Body weight 73.94 kg Suzanne Dutton Other [facility] Other 04-04-2023 11:00-0400 Diastolic blood pressure 69 mm[Hg] Suzanne Dutton Other [facility] Other 04-04-2023 11:00-0400 Systolic blood pressure 148 mm[Hg] Suzanne Dutton Other [facility] Other Encounters Encounter Date Encounter Type Care Provider Facility Start: 01-05-2025 End: 01-05-2025 ambulatory [facility] Start: 01-14-2024 End: 01-14-2024 ambulatory [facility] Start: 04-04-2023 (PROC) PROCEDURE Suzanne Dutton [facility] Start: 04-04-2023 End: 04-04-2023 ambulatory Suzanne Dutton Other [facility] Other Start: 12-12-2022 End: 12-13-[address] SUZANNE DUTTON Facility:[facility] Start: 06-05-2022 End: 06-06-2022 ambulatory [place] Facility:[facility] Start: 04-18-[address] SUZANNE DUTTON Facil ity:[facility] Start: 04-04-2022 End: 04-05-2022 ambulatory [place] Facility:[facility] Start: 03-24-2022 End: 03-25-[address] SUZANNE DUTTON Facility:[facility] Start: 03-09-2022 End: 03-09-[address] SUZANNE DUTTON Facility:[facility] Procedures Date Procedure Procedure Detail Performing Clinician Start: 07-04-2018 General examination of patient Suzanne Dutton Other Start: 07-04-2018 Screening for malign ant neoplasm of colon Suzanne Dutton Other Start: 07-04-2018 Screening for malign ant neoplasm of prostate Suzanne Dutton Other Screening for malign ant neoplasm of prostate Suzanne Dutton Other Immunizations Immunization Date Immunization Notes Care Provider Fa cili 08-02-2020 zoster vaccine, live Suzanne Dutton Other [facility] Other 07-04-2018 pneumococcal Conjuga te, unspecified formulation; Translations: [Need for prophylactic vaccination against Streptococcus pneumoniae (pneumococcus)] Suzanne Dutton Other [facility] Other 07-04-2018 pneumococcal polysaccharide vaccine, 23 valent Suzanne Dutton Other [facility] Other Payers Date Payer Category Payer Medicare [id number] 1958 Self-pay [id number] 1950 Unknown [id number] [id number] [id number] 1950 Unknown [id number] [id number] [id number] 1950 Unknown [id number] 2.16.84 [id number] 1950 Unknown [id number] 2.16.84 [id number] 1950 Unknown [id number] 2.16.84 [id number] 1950 Unknown [id number] 2.16.84 [id number] Social History Date Type Detail Facility Unknown if ever smoked [facility] Other Sex Assigned At Sex Assigned At Bir th [facility] Other Progress note 01-05-2025 Note Date & Type Note Facility 01-05-2025 Note [place] [facility] Subjective Cullen Ragland is a 74 y.o. year old male patient being seen for 6 mo follow up. Patient states he has fatigue. Patient denies chest pain, SOB. BROOKS, dizziness. Patient complains of occasional bleeding gums when he brushes his teeth, leg swelling, and white finger nails. Patient states his blood pressure gets low at time, under 90/50. Patient would like to talk about a different blood thinner due to the cost. Patient states he was previously denied assistance from the drug company. Patient Active Problem List Diagnosis Chest pressure Palpitations PAF (paroxysmal atrial fibrillation) ([facility]) Lightheadedness Mixed hyperlipidemia Essential hypertension Smoker Claudication Nonrheumatic aortic valve stenosis Family History Problem Relation Name Age of Onset Stroke Mother Heart failure Mother Social History Tobacco Use Smoking status: Former Current packs/day: 0.00 Types: Cigarettes Quit date: 03/14/2022 Years since quittin.8 Smokeless tobacco: Never Tobacco comments: Vape 20 to 30 hits per day Substance Use Topics Alcohol use: Yes Comment: occasional Drug use: Never HPI Visit of 03/27/2022: Cullen is seen as a new patient. He is a 72-year-old man with prior history of hypertension, longtime smoking and hyperlipidemia on treatment. He was recently diagnosed with atrial fibrillation when he presented to the [facility] emergency room on 03/09/2022. He was started on Cardizem and reverted to sinus rhythm. He was discharged on Xarelto for anticoagulation. His heart rate has been maintained in the 60 to 70 bpm range. He reports that he quit smoking few weeks ago. He does not get chest pain. He gets chest pressure and shortness of breath when he has palpitations and on exertion. He underwent an echocardiogram that showed moderate aortic valve stenosis. Visit of 05/22/2022: He is seen in follow-up today. At last visit I added metoprolol tartrate 12.5 mg twice daily due to elevated blood pressure and to better control his heart rate. Due to shortness of breath on exertion I checked a stress test and this did not show evidence of ischemia by nuclear imaging. I also checked abdominal aortic ultrasound due to his history of smoking to screen for abdominal aortic aneurysm and there was none. I also checked a lipid profile to follow-up on his lipid control. Today he reports that he has been having less palpitations. He has a Fitbit that tracks his heart rate and his baseline heart rate is around 55 to 60 bpm. At times it can go higher. He still has shortness of breath on exertion NYHA class II-III. No leg edema. No chest pain. Visit of 06/22/2023: He is seen in follow-up. He reports that he has been doing relatively well. He does have episodes of tachycardia according to his Fitbit with a heart rate reaching up to 130 bpm. This lasts a few minutes and then he goes back to 70 bpm. He has no bleeding on the current Eliquis 5 mg twice daily. He has shortness of breath on moderate to severe exertion but not at low levels of activity. He denies chest pain. No syncope. He also reports having muscle pains in the thighs upon walking. Visit of 01/14/2024: He is seen in follow-up. At visit of 06/22/2023 I increased metoprolol to tartrate 25 mg twice daily. I had also recommended reducing atorvastatin to half tablet daily to see if this would help with his leg cramps. He said that he tried it for a couple weeks and it did not make a difference and he is back taking atorvastatin 40 mg daily. He continues to have significant symptoms of muscle cramps in the legs. He otherwise denies any chest pain, any significant shortness of breath and palpitations after increasing the metoprolol to tartrate dosage. No leg edema. Visit of 01/05/2025: He is seen in follow-up. Overall he has been doing reasonably well. He denies chest pain and shortness of breath. He has mild occasional leg swelling. He is complaining of cost of Eliquis and is looking for alternative. He does not feel palpitations. He has good exercise tolerance. At last visit I had switched him from atorvastatin to pravastatin and ezetimibe. His cramps symptoms are improved but he still has them every now and then. Review of Systems Cardiovascular: Positive for leg swelling. Hematologic/Lymphatic: Bruises/bleeds easily. Skin: Positive for nail changes. Musculoskeletal: Positive for arthritis, joint pain, muscle cramps, muscle weakness and myalgias. All other systems reviewed and are negative. Objective Visit Vitals BP 128/85 (BP Location: Right arm, Patient Position: Sitting) Pulse 59 Ht 1.803 m (5' 11 ) Wt 74.4 kg (164 lb) SpO2 97% BMI 22.87 kg/m??? Smoking Status Former BSA 1.93 m??? Physical Exam Constitutional: Appearance: He is well-developed. He is not ill-appearing. HENT: Head: Normocephalic and atraumatic. Nose: (more content not included)... [facility] Progress note 01-14-2024 Note Date & Type Note Facility 01-14-2024 Note [place] [facility] Subjective Cullen Ragland is a 73 y.o. year old male patient being seen for 6 mo follow up PAF, hypertension, and aortic valve stenosis. Had echo last week and lipid profile this morning. Denies chest pain, SOB, and palpitations. Says his LE sometimes feel weak and crampy with ambulation. Patient Active Problem List Diagnosis Chest pressure Palpitations PAF (paroxysmal atrial fibrillation) (CMS/HCC) Lightheadedness Mixed hyperlipidemia Essential hypertension Smoker Claudication (CMS/HCC) Nonrheumatic aortic valve stenosis Family History Problem Relation Name Age of Onset Stroke Mother Heart failure Mother Social History Tobacco Use Smoking status: Former Types: Cigarettes Quit date: 03/14/2022 Years since quittin.8 Smokeless tobacco: Never Substance Use Topics Alcohol use: Yes Comment: occasional HPI Visit of 03/27/2022: Cullen is seen as a new patient. He is a 72-year-old man with prior history of hypertension, longtime smoking and hyperlipidemia on treatment. He was recently diagnosed with atrial fibrillation when he presented to the [facility] emergency room on 03/09/2022. He was started on Cardizem and reverted to sinus rhythm. He was discharged on Xarelto for anticoagulation. His heart rate has been maintained in the 60 to 70 bpm range. He reports that he quit smoking few weeks ago. He does not get chest pain. He gets chest pressure and shortness of breath when he has palpitations and on exertion. He underwent an echocardiogram that showed moderate aortic valve stenosis. Visit of 05/22/2022: He is seen in follow-up today. At last visit I added metoprolol tartrate 12.5 mg twice daily due to elevated blood pressure and to better control his heart rate. Due to shortness of breath on exertion I checked a stress test and this did not show evidence of ischemia by nuclear imaging. I also checked abdominal aortic ultrasound due to his history of smoking to screen for abdominal aortic aneurysm and there was none. I also checked a lipid profile to follow-up on his lipid control. Today he reports that he has been having less palpitations. He has a Fitbit that tracks his heart rate and his baseline heart rate is around 55 to 60 bpm. At times it can go higher. He still has shortness of breath on exertion NYHA class II-III. No leg edema. No chest pain. Visit of 06/22/2023: He is seen in follow-up. He reports that he has been doing relatively well. He does have episodes of tachycardia according to his Fitbit with a heart rate reaching up to 130 bpm. This lasts a few minutes and then he goes back to 70 bpm. He has no bleeding on the current Eliquis 5 mg twice daily. He has shortness of breath on moderate to severe exertion but not at low levels of activity. He denies chest pain. No syncope. He also reports having muscle pains in the thighs upon walking. Visit of 01/14/2024: He is seen in follow-up. At visit of 06/22/2023 I increased metoprolol to tartrate 25 mg twice daily. I had also recommended reducing atorvastatin to half tablet daily to see if this would help with his leg cramps. He said that he tried it for a couple weeks and it did not make a difference and he is back taking atorvastatin 40 mg daily. He continues to have significant symptoms of muscle cramps in the legs. He otherwise denies any chest pain, any significant shortness of breath and palpitations after increasing the metoprolol to tartrate dosage. No leg edema. Review of Systems Musculoskeletal: Positive for arthritis, joint pain, muscle cramps, muscle weakness and myalgias. All other systems reviewed and are negative. Objective Visit Vitals BP 132/72 (BP Location: Left arm, Patient Position: Sitting) Pulse 56 Ht 1.803 m (5' 11 ) Wt 74.8 kg (165 lb) SpO2 98% BMI 23.01 kg/m??? Smoking Status Former BSA 1.94 m??? Physical Exam Constitutional: Appearance: He is well-developed. He is not ill-appearing. HENT: Head: Normocephalic and atraumatic. Nose: Nose normal. Eyes: General: No scleral icterus. Pupils: Pupils are equal, round, and reactive to light. Neck: Thyroid: No thyromegaly. Vascular: No JVD. Cardiovascular: Rate and Rhythm: Normal rate and regular rhythm. Pulses: Posterior tibial pulses are 2+ on the right side and 2+ on the left side. Heart sounds: Murmur heard. Systolic (RUSB) murmur is present with a grade of 3/6. No friction rub. No gallop. Pulmonary: Effort: Pulmonary effort is normal. No respiratory distress. Breath sounds: Normal breath sounds. No wheezing or rales. Chest: Chest wall: No tenderness. Abdominal: General: Bowel sounds are normal. There is no distension. Palpations: Abdomen is soft. Tenderness: There is no abdominal tenderness. Musculoskeletal: General: No swelling. Cervical back: Neck supple. Skin: General: Skin is warm and dry. Neurological: Ge (more content not included)... [facility] Evaluation note 04-04-2023 Note Date & Type Note Facility 04-04-2023 Evaluation note Encounter Date Diagnosis Assessment Notes Mar, Bilateral impacted cerumen (ICD-10 - H61.23) L removal sucessful. moderate pain and bleeding in L distal canal. Will cover w antibiotic ear drops and call if further concerns. [facility] Other Clinical Note 04-04-2022 Note Date & Type Note Facility 04-04-2022 Note CARDIAC STRESS TEST Requesting Physician: Coy Land M.D. Procedure Date:04/04/2022 REASON FOR TEST: Dyspnea on exertion. EKG PORTION OF TREADMILL NUCLEAR STRESS TEST: At baseline, his heart rate was 56 beats per minute, with a resting blood pressure of 160/90 mm/Hg, achieving a peak heart rate of 130 beats per minute and a blood pressure of 178/90 mm/Hg, achieving 87% of the exercise predicted rate. He exercised through 9 minutes and 30 seconds and achieved stage 3, reaching 10 METS. REASON FOR TERMINATION: Dyspnea and achieving target heart rate. Baseline EKG showed sinus rhythm with normal intervals. With exercise, patient was noted to have some PVCs at stage 1 and that was also seen in stage 2. On achieving maximum heart at stage 4, he was noted to have ST segment depression in the inferior and lateral leads, which completely reversed in recovery phase. There were PVCs also noted during the recovery phase. Heart rate of 156 was appropriate and the blood pressure with exercise was also appropriate. Arrhythmias that were noted were PVCs during exercise. ST segment changes and depressions were noted in the inferior and lateral leads, concerning for ischemia. Perfusion test to be dictated by Radiology. [facility] History general Narrative - Reported Note Date & Type Note Facility History general Narrative - Reported Type Medical History hyperlipidemia Medical History hypertension Surgical History hernia [facility] [facility] Other Summary Purpose Family History No Family History Records FoundNo Family History Records Found Advance Directives No Advanced Directives Records FoundNo Advanced Directives Records Found Additional Source Comments (unrecognized sect ion and content) No Status Records FoundNo Status Records Found INFORMATION SOURCE (unrecogn ized section and content) DATE CREATED AUTHOR 12/22/2022 [facility] DATE CREATED AUTHOR AUTHOR'S SWATHI PINA 01/06/2025 [facility] REASON FOR VISIT (unrecogniz ed section and content) ear cleaning FOR RECORDS PERTAINING TO PATIENTS WHO ARE OR HAVE BEEN ENROLLED IN A CHEMICAL DEPENDENCY/SUBSTANCEABUSE PROGRAM, SOME INFORMATION MAY BE OMITTED. This clinical summary was aggregated from multiple sources. Caution should be exercised in using it in the provision of clinical care. This summary normalizes information from multiple sources, and as a consequence, information in this document may materially change the coding, format and clinical context of patient data. In addition, data may be omitted in some cases. CLINICAL DECISIONS SHOULD BE BASED ON THE PRIMARY CLINICAL RECORDS. [facility]. provides no warranty or guarantee of the accuracy or completeness of information in this document.
[2025-01-15 11:25] LABS: Alanine Aminotransferase 14 U/L (16-63); Albumin Globulin Ratio 1.1; Albumin Level 3.8 g/dL (3.4-5.0); Alkaline Phosphatase 57 U/L (46-116); Anion Gap 10.8; Aspartate Amino Transferase 15 U/L (15-37); Blood Urea Nitrogen 9.0 mg/dL (7.0-18.0); Calcium 9.1 mg/dL (8.5-10.1); Carbon Dioxide 28.3 mmol/L (21.0-32.0); Chloride 103 mmol/L (98-107); Cholesterol 145 mg/dL (<=200); Estimated GFR (African America >60 (>=60 mL/min/1.73m^2); Estimated GFR (Non-African Ame >60 (>=60 mL/min/1.73m^2); Globulin 3.5 g/dL; Glucose 91 mg/dL (74-106); HDL Cholesterol 65 mg/dL (40-60); Potassium 4.1 mmol/L (3.5-5.1); Sodium 138 mmol/L (136-145); Total Protein 7.3 g/dL (6.4-8.2); Triglycerides 57 mg/dL (<=150); VLDL CHOLESTEROL 11.4 mg/dL
[2025-01-15 11:26] LABS: Hematocrit 41.5 % (42.0-54.0); Hemoglobin 14.9 g/dL (14.0-18.0); Immature Granulocytes Abs Auto 0.04 10^3/uL (0.00-0.03); Immature Granulocytes Pct Auto 0.4 % (0.0-0.5); Lymphocytes Absolute Auto 3.5 10^3/uL (1.2-3.8); Mean Corpuscular HGB Conc 35.9 g/dL (29.9-35.2); Mean Corpuscular Hemoglobin 31.8 pg (25.9-34.0); Mean Corpuscular Volume 88.5 fL (80.0-94.0); Platelet Count 331 10^3/uL (150-450); Red Blood Count 4.69 10^6/uL (4.70-6.10); White Blood Count 9.3 10^3/uL (4.0-11.0)
== END 2025-01-15 10:27 | disposition home or self-care (01) ==
PROVIDERS: PCP Family Medicine; Visit Provider Internal Medicine Interventional Cardiology
DX: I48.0 Paroxysmal atrial fibrillation (principal); I10 Essential (primary) hypertension; E78.2 Mixed hyperlipidemia
CPT/HCPCS: 36415; 80053; 80061; 85025

== ENCOUNTER 2025-03-12 14:03 | Outpatient (OUT) | payer MEDICARE, SELFPAY ==
--- NOTE | 2025-03-12 14:05 | CT_ITS ---
The [address] [address] Patient Name: ROXANA RAGLAND MRN: [id number] date: 1950 Sex: M Assigned Patient Location: CT Current Patient Location: Accession/Order Number: [id number] Exam Date: 03/12/2025 14:15 Report Date: 03/13/2025 09:45 At the request of: NATASHA DUTTON MD Procedure: CT chest high res HIGH RESOLUTION CT CHEST WITHOUT CONTRAST CLINICAL DATA: Prior history of tobacco use COMPARISON: 03/24/2022 Spiral axial unenhanced images were obtained through the chest. Images were reconstructed at 1 mm sections at 10 mm increments. Patient is also scanned in prone position with high-resolution technique. Images were reviewed using both narrow and wide window settings. This CT exam was performed using one or more following dose reduction techniques: Automated exposure control, adjustment of the mA and/or kV according to patient size, or use of iterative reconstruction technique. The heart is normal size. No pericardial effusion is seen. Coronary artery disease is noted. The ascending aorta is slightly ectatic. There is atherosclerotic plaque at the aorta and proximal great vessels. There are few small nonpathologic mediastinal lymph nodes. There is slight S-shaped thoracic lumbar scoliotic curvature and endplate spurring. Atelectasis and/or scarring is present. There are airspace lucencies compatible with obstructive lung disease. There is no prominent interstitial thickening. No other consolidation, pleural effusion or pneumothorax is noted. A 3 mm nodule is visualized at the left upper lobe on axial image 18. There are a few nodules within the left lower lobe measuring 5 mm on axial image 92, 6 mm on axial image 89 and 4 mm on axial image 77. There is a 2 - 3 mm nodule at the right lower lobe on image #66. These were also suggested on the comparison and not significantly changed. Limited cuts through the upper abdomen show no contributory findings. CT/CT chest high res IMPRESSION: OBSTRUCTIVE LUNG DISEASE. TINY PULMONARY NODULES, SIMILAR TO THE PRIOR. Lung RADS category 2 - benign Twelve-month low-dose CT follow-up suggested. Impression dictated by: Alysia Gold M.D. 03/13/2025 9:45 AM Dictation Location: [employer] Electronically authenticated by: [id number] Y Date: 03/13/2025 09:45
--- OUTSIDE RECORDS SUMMARY | 2025-03-12 14:05 | XMS_ITS | Clinical Summary ---
Author Organization [facility] Address [address] [place] [address] Care Team Providers Care Servicer Name Role Phone Suzanne Galloway MD Primary Care Provider [phone] Allergies No known active allergies Medications metoprolol tartrate (Lopressor) 25 mg tabletIndications:P AF (paroxysmal atrial fibrillation) (CMS/HCC),Essential hypertension TAKE 1 TABLET BY MOUTH IN THE MORNING AND AT BEDTIME 180 tablet 3 4 Active lisinopril 20 mg tabletIndications:E ssential hypertension TAKE 1 TABLET BY MOUTH EVERY DAY IN THE MORNING 90 tablet 3 4 Active dabigatran etexilate (Pradaxa) 150 mg capsuleIndications: PAF (paroxysmal atrial fibrillation) (CMS/HCC) Take 1 capsule (150 mg) by mouth two times daily. Do not crush or chew. 180 capsule 3 5 01/06/20 26 Active pravastatin (Pravachol) 40 mg tabletIndications:M ixed hyperlipidemia TAKE 1 TABLET BY MOUTH EVERY DAY IN THE MORNING 90 tablet 3 5 Active ezetimibe (Zetia) 10 mg tabletIndications:M ixed hyperlipidemia TAKE 1 TABLET BY MOUTH EVERY DAY IN THE MORNING 90 tablet 3 5 Active Active Problems Problem Noted Date Diagnosed Date Chest pressure 03/25/2022 Palpitations 03/25/2022 PAF (paroxysmal atrial fibrillation) 03/25/2022 Assessment & Plan (11/24/2022 10:57 AM EDT): [id number]= 2 age and HTN Continue metoprolol and xarelto anticoagulation Lightheadedness 03/25/2022 Mixed hyperlipidemia 03/25/2022 Assessment & Plan (11/24/2022 10:53 AM EDT): Lipid abnormalities are stable, last LDL 74 Continue lipitor Essential hypertension 03/25/2022 Assessment & Plan (11/24/2022 10:53 AM EDT): Hypertension is stable, pt states at home his b/p with typically 120-130/70-80 Continue medications- lisinopril and metoprolol Renal function was normal after increased dose last May per Dr Simons. Smoker 03/25/2022 Assessment & Plan (11/24/2022 10:58 AM EDT): Recommended smoking cessation and not ready to quit currently Claudication 03/25/2022 Assessment & Plan (11/24/2022 10:57 AM EDT): Stable no complaints Nonrheumatic aortic valve stenosis 03/24/2022 Assessment & Plan (11/24/2022 10:55 AM EDT): Moderate AO stenosis on last ECHO- will repeat echocardiogram to assess AO stenosis. No concerning symptoms today D/W pt to call office for chest pain, shortness of breath, palpitations, syncope and he voiced understanding Encounters Date Type Department Care Team Description 01/20/2025 Telephone [facility] [address] [place] [address] Susan Heart MA 01/14/2025 Refill [facility] [address] [place] [address] Mark Simons MD Mixed hyperlipidemia 01/05/2025 2:30 PM EDT Office Visit [facility] [address] [place] [address] Mark Simons MD Nonrheumatic aortic valve stenosis (Primary Dx); Mixed hyperlipidemia; Essential hypertension; PAF (paroxysmal atrial fibrillation) (CMS/HCC) from Last 3 Months Family History Medical History Relation Name Comments Heart failure Mother Stroke Mother Relation Name Status Comments Father Mother Social History Tobacco Use Types Packs/Day Years Used Date Smoking Tobacco: Former Cigarettes Q uit: 03/14/2022 Smokeless Tobacco: Never Comments:Vape 20 to 30 hits per day Alcohol Use Standard Drinks/Week Comments Yes 0 (1 standard drink = 0.6 oz pur e alcohol) occasional [place] Safety & Environment Answer Date Rec orded Fear of Current or Ex-Partner Not on file Emotionally Abused Not on file 09/06/2023 Physically Abused Not on file 09/06/2023 Sexually Abused Not on file 09/06/2023 Physically or Sexually Abused Not on file Sex and Gender Information Value Date Recorded Sex Assigned at Not on file Legal Sex Male 11:17 AM EDT Gender Identity Not on file Sexual Orientation Not on file Last Filed Vital Signs Vital Sign Reading Time Taken Comments Blood Pressure 128/85 01/05/2025 2:40 PM EDT Pulse 59 01/05/2025 2:40 PM EDT Temperature - - Respiratory Rate - - Oxygen Saturation 97% 01/05/2025 2:40 PM EDT Inhaled Oxygen Concentration - - Weight 74.4 kg (164 lb) 01/05/2025 2:40 PM EDT Height 180.3 cm (5' 11 ) 01/05/2025 2:40 PM EDT Body Mass Index 22.87 01/05/2025 2:40 PM EDT Plan of Treatment Health Maintenance Due Date Last Done Comments CT Colonography 1950 Colonoscopy 1950 Colorectal Cancer Screening 1950 FIT-DNA 1950 FIT 1950 FOBT 1950 Medicare Annual Wellness (AWV) 1950 Sigmoidoscopy 1950 Depression Screening 1963 Adult Tetanus 1973 Fall Risk Screening 02/09/2016 COVID-19 Vaccine ( season) 2024 Influenza Vaccine (#1) 2025 , 05/20/2019, 05/18/2018, Additional history exists Pneumococcal Vaccine: 50+ Years Completed 07/04/2018, 05/28/2017 Zoster Vaccines Completed 08/02/2020, 04/21/2020 HIB Vaccines Aged Out No longer eligi ble based on patient's age to complete this topic HPV Vaccines Aged Out No longer eligi ble based on patient's age to complete this topic IPV Vaccines Aged Out No longer eligi ble based on patient's age to complete this topic Meningococcal B Vaccine Aged Out No l onger eligible based on patient's age to complete this topic Meningococcal Vaccine Aged Out No charan bozena eligible based on patient's age to complete this topic Rotavirus Vaccines Aged Out No longer eligible based on patient's age to complete this topic Insurance [employer] MEDICARE ADVANTAGE Care Teams Servicer Relationship Specialty Start Date End Date Suzanne Galloway MD [address] [facility] PCP - General 03/25/22
--- OUTSIDE RECORDS SUMMARY | 2025-03-12 14:05 | XMS_ITS | Clinical Summary ---
Author Organization [facility] Address [address] [place] [address] Care Team Providers Care Solar Sales Rep Name Role Phone Unavailable Primary Care Provider Unavailabl e Social History Tobacco Use Types Packs/Day Years Used Date Smoking Tobacco: Never Assessed Sex and Gender Information Value Date Recorded Sex Assigned at Not on file Legal Sex Male 6:40 PM EDT Gender Identity Not on file Sexual Orientation Not on file Plan of Treatment Not on file
--- OUTSIDE RECORDS SUMMARY | 2025-03-12 14:05 | XMS_ITS | Encounter Summary ---
Author Organization [facility] Address [address] [place] [address] Care Team Providers Care Level Glass Vial Filler Name Role Phone Suzanne Galloway MD Primary Care Provider [phone] Reason for Visit * Reason Comments Med Refill Encounter Details Date Type Department Care Team (Late st Contact Info) Description 10/01/2023 Refill [facility] [address] [place] [address] Vale Hernandez, STICK PULLER [address] [place] [id number] Atrial fibrillation, unspecified type (CMS/HCC) Social History Tobacco Use Types Packs/Day Years Used Date Smoking Tobacco: Former Cigarettes Q uit: 03/14/2022 Smokeless Tobacco: Never Alcohol Use Standard Drinks/Week Comments Yes 0 [...] on file Sexual Orientation Not on file documented as of this encounter Plan of Treatment Not on file documented as of this encounter Visit Diagnoses Diagnosis Atrial fibrillation, unspecified type (CMS/HCC) documented in this encounter Care Teams Level Glass Vial Filler Relationship Specialty Start Date End Date Suzanne Galloway MD [address] [facility] PCP - General 03/25/22 documented as of this encounter
--- OUTSIDE RECORDS SUMMARY | 2025-03-12 14:29 | XMS_ITS | CCD ---
Author Organization 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 Name Role Phone COY LAND Attending Unavailable [...] Unavailable ZIEBER, DR URIAH Turcios Consulting Unavailable KATKO, LU Garcia Admitting Unavailable KATKO, LU Garcia Attending Unavailable GRECHNY ., HASEEB GUPTA Consulting Unavailabl e DUTTON, DR SUZANNE Pfeiffer Attending Unavailable DUTTON, DR SUZANNE Pfeiffer Primary Care Unavailable DUTTON, DR SUZANNE Pfeiffer Admitting Unavailable MOUKARBEL, COY Admitting Unavailable MOUKARBEL, COY Attending Unavailable MOUKASONYA, COY Consulting Unavailable DUTTON, DR SUZANNE Pfeiffer Primary Care Unavailable Laverne, Suzanne Unavailable COY LAND Attending Unavailable Suzanne Dutton MD Primary Care Provider [phone] Coy Land MD, V Attending Provider Suzanne Dutton MD Attending Provider [phone] Allergies Allergy Classification Reported Allergen(s) Allergy Type Date of Onset Reaction(s) Facility (1 source) patient allergy list reviewed by nurse or physicia Propensity to adverse reactions 8 Comment:Done Tripl Other (1 source) Allergies Reconciled Propensity to adverse reactions Unknown Tripl Other Medications Current Medications Medication Drug Class(es) Dates Sig (Normalized) Sig (Original) ciprofloxacin 3 mg/ml / dexamethasone 1 mg/ml otic suspension (1 source) Corticosteroid, Quinolone Antimicrobial Ciprofloxacin-de xAMETHasone 0.3-0.1 % 4 drops into affected ear Otic Twice a day for 7 days Active dabigatran etexilate 150 mg oral capsule (1 source) Start: 01-26-2025 take 1 capsule by mouth twice daily Dabigatran Etexilate 150 mg capsule Active 150 MG PO Twice daily January 26, 2025 12:00am Complies with drug therapy docusate sodium 100 mg oral capsule (2 sources) Start: 01-23-2025 take 1 capsule by mouth once daily Docusate Sodium (Colace) 100 mg capsule Active 100 MG PO Daily January 23, 2025 12:00am Complies with drug therapy Colace Active ezetimibe 10 mg oral tablet (1 source) Dietary Cholesterol Absorption Inhibitor Start: 01-26-2025 take 1 tablet by mouth once daily Ezetimibe 10 mg tablet Active 10 MG PO Daily January 26, 2025 12:00am Complies with drug therapy latanoprost 0.05 mg/ml ophthalmic solution (2 sources) Prostaglandin Analog Start: 01-23-2025 take 1 drop(s) into the eye(s) once daily Latanoprost 0.005 % drops Active 1 DROPS EYE-BOTH Daily January 23, 2025 12:00am Complies with drug therapy Start: 03-13-2022 Latanoprost 0. 005% Latanoprost( 0.005% Ophthalmic ) Active - Hx Entry Ophthalmic for 0 *Pick strength-form from [facility] for eRX* Feb, Active lisinopril 20 mg oral tablet (2 sources) Angiotensin Converting Enzyme Inhibitor Start: 01-23-2025 take 1 tablet by mouth once daily Lisinopril 20 mg tablet Active 20 MG PO Daily January 23, 2025 12:00am Free[employer] tablet once a day; Note: Source Status: Taking; Provider: Laverne Palacios ( ) Complies with drug therapy take 1 tablet by isabelle th every twenty-four hours Lisinopril 20 MG 1 tablet once a day Active metoprolol tartrate 25 mg oral tablet (3 sources) beta-Adrenergic Baltazar Start: 01-26-2025 Metopr olol Tartrate 25 mg tablet Active 25 MG PO Twice daily January 26, 2025 1:15pm FreeTextSi/2 tablet once in am and once in pm; Note: Source Status: Taking; Provider: Laverne Palacios ( ) Complies with drug therapy Start: 01-23-2025 End: 01-26-2025 Metoprolol Tartrate 25 mg ta blet Discontinued 25 MG PO Daily January 23, 2025 12:00am January 26, 2025 1:15pm FreeTextSi/2 tablet once in am and once in pm; Note: Source Status: Taking; Provider: Laverne Palacios ( ) Metoprolol Tartr ate 25 MG 1/2 tablet once in am and once in pm Active Multi Complete (1 source) Multi Complete A ctive Multivitamin (Daily Multi-Vitamin) tablet (1 source) Start: take 1 tablet by mouth once daily Multivitamin (Daily Multi-Vitamin) tablet Active 1 TAB PO Daily January 23, 2025 12:00am Complies with drug therapy pravastatin sodium 40 mg oral tablet (1 source) HMG-CoA Reductase Inhibitor Start: take 1 tablet by mouth once daily Pravastatin 40 mg tablet Active 40 MG PO Daily January 26, 2025 12:00am Complies with drug therapy Completed/Discontinued Medications Medication Drug Class(es) Dates Sig (Normalized) Sig (Original) atorvastatin 40 mg oral tablet (3 sources) HMG-CoA Reductase Inhibitor Start: 11-30-2023 End: 01-26-2025 take 1 tablet by mouth once daily Atorvastatin 40 mg tablet Discontinued 0 .ROUTE .COMPLEX 90 November 30, 2023 9:50am January 26, 2025 1:13pm TAKE 1 TABLET BY MOUTH EVERY DAY Start: 11-30-2023 End: 11-30-2023 take 1 tablet by mouth once daily Atorvastatin 40 mg tablet Discontinued 40 MG PO Daily November 30, 2023 12:00am November 30, 2023 9:50am take 1 tablet by isabelle th once daily Atorvastatin Calcium 40 MG TAKE 1 TABLET BY MOUTH EVERY DAY for 90 Active rivaroxaban 20 mg oral tablet (2 sources) Factor Xa Inhibitor Start: 01-23-2025 End: 01-26-2025 take 1 tablet by mouth once daily at dinner Rivaroxaban (Xarelto) 20 mg tablet Discontinued 20 MG PO Daily January 23, 2025 12:00am January 26, 2025 1:14pm must administer with evening meal Start: 03-13-2022 take 1 tablet by isabelle th once daily Xarelto 20MG Xarelto 20MG, 1 (one) Tablet daily # 28, 03/13/2022, No Refill. Active Oral daily for 0 *Pick strength-form from [facility] for eRX* Feb, Active Problems Active Problems Problem Classification Problem Date Documented Date Episodic/Chronic Acute bronchitis (1 source) Acute bronchitis; Translations: [Acute bronchitis, unspecified] Episodic Cardiac dysrhythmias (9 sources) Paroxysmal atrial fibrillation; Translations: [Unspecified atrial fibrillation] Onset: 2 Chronic Disorders of lipid metabolism (5 sources) Mixed hyperlipidemia; Translations: [Pure hypercholesterolemia, unspecified] Onset: 8 Chronic Essential hypertension (4 sources) Essential (primary) hypertension; Translations: [Essential hypertension] Onset: 8 Chronic Fever of unknown origin (1 source) Fever; Translations: [Fever, unspecified] Episodic Glaucoma (1 source) Glaucoma; Translations: [Unspecified glaucoma] Onset: 8 Chronic Heart valve disorders (7 sources) Nonrheumatic aortic (valve) stenosis; Translations: [Rheumatic tricuspid insufficiency] Onset: 2 Chronic Osteoarthritis (1 source) Osteoarthritis; Translations: [Unspecified osteoarthritis, unspecified site] Onset: 8 Chronic Other circulatory disease (1 source) Elevated blood-pressure reading without diagnosis of hypertension; Translations: [Elevated blood-pressure reading, without diagnosis of hypertension] Episodic Other ear and sense organ disorders (1 source) Impacted cerumen, bilateral Episodic Other screening for suspected conditions (not mental disorders or infectious disease) (4 sources) Abnormal result of other cardiovascular function study; Translations: [Abnormal electrocardiogram [ECG] [EKG]] Onset: 2 01-26-2025 Episodic Peripheral and visceral atherosclerosis (3 sources) Unspecified atherosclerosis; Translations: [Peripheral vascular disease, unspecified] Onset: 2 Chronic Residual codes; unclassified (1 source) Normal body mass index; Translations: [Body mass index (BMI) 21.0-21.9, adult] Episodic Residual codes; unclassified (2 sources) Family history of diabetes mellitus; Translations: [Family history of diabetes mellitus] 01-26-2025 Episodic Screening and history of mental health and substance abuse codes (2 sources) Personal history of nicotine dependence; Translations: [History of nicotine dependence] 01-26-2025 Episodic Substance-related disorders (2 sources) Nicotine dependence, cigarettes, uncomplicated; Translations: [Tobacco user] Onset: 8 Chronic Unclassified (1 source) CONTACT W/AND (SUSP) EXPOS COVID-19; Translations: [CONTACT W/AND (SUSP) EXPOS COVID-19] Onset: 2 Past or Other Problems Problem Classification Problem Date Documented Da te Episodic/Chronic Cardiac dysrhythmias (3 sources) Palpitations; Translations: [PALPITATIONS] Onset: 03-09-2022 Episodic Other lower respiratory disease (4 sources) Shortness of breath; Translations: [SHORTNESS OF BREATH] Onset: 06-05-2022 Episodic Other lower respiratory disease (4 sources) Other forms of dyspnea; Translations: [OTHER FORMS OF DYSPNEA] Onset: 04-04-2022 Episodic Results Test Name Value Interpretation Reference Range Facility 36 01-20-2025 36 Regarding lab results from 01/15/2025: MD Susan Gomez MA Blood testing is ok, follow up as planned. Patient informed and verbalized understanding. Normal [facility] Basophils Auto (Bld) [#/Vol] Ordered By: Coy Land on 01-15-2025 Basophils (Bld) [#/Vol] 0.0 10 3/uL 0.0-0.1 [facility] Basophils/100 WBC Auto (Bld) Ordered By: Coy Land on 01-15-2025 Basophils/100 WBC (Bld) 0.3 % 0.2-2.0 [facility] Cholesterol in LDL Calc [Mas s/Vol]Ordered By: Coy Land on 01-15-2025 Cholesterol in LDL [Mass/Vol] 69.0 mg/dL [facility] Comment on above: <100 mg/dl [id number] 0-129 mg/dl NEAR OR ABOVE [id number] mg/dl BORDERLINE [id number] mg/dl HIGH>190 mg/dl VERY HIGH Cholesterol in VLDL Calc [Ma ss/Vol]Ordered By: Coy Land on 01-15-2025 Cholesterol in VLDL [Mass/Vol] 11.4 mg/dL [facility] Eosinophils/100 WBC Auto (Bl d)Ordered By: Coy Land on 01-15-2025 Eosinophils/100 WBC (Bld) 1.3 % 0.9-7.0 [facility] Erythrocyte distribution wid th Auto (RBC) [Ratio]Ordered By: Coy Land on 01-15-2025 Erythrocyte distribution width (RBC) [Ratio] 14.5 % 11.0-15.0 [facility] Estimated glomerular filtrat ion rate (GFR) non- AmericanOrdered By: Coy Land on 01-15-2025 GFR/1.73 sq M.predicted among non-blacks MDRD (S/P/Bld) [Vol rate/Area] mL/min/{1.73_m2} >=60 mL/min/1.73m 2 [facility] Globulin Calc (S) [Mass/Vol] Ordered By: Coy Land on 01-15-2025 Globulin (S) [Mass/Vol] 3.5 g/dL [facility] Hematocrit Auto (Bld) [Volum e fraction]Ordered By: Coy Land on 01-15-2025 Hematocrit (Bld) [Volume fraction] 41.5 % Low 42.0-54.0 [facility] Hemoglobin [Mass/volume] in BloodOrdered By: Coy Land on 01-15-2025 Hemoglobin (Bld) [Mass/Vol] 14.9 g/dL 14.0-18.0 [facility] - Chemistry and C hemistry - challengeOrdered By: Coy Land on 01-15-2025 Albumin [Mass/Vol] 3.8 g/dL 3.4-5.0 [facility] ALP [Catalytic activity/Vol] 57 U/L 46-116 [facility] ALT [Catalytic activity/Vol] 14 U/L Low 16-63 [facility] AST [Catalytic activity/Vol] 15 U/L 15-37 [facility] Bilirubin [Mass/Vol] 1.3 mg/dL High 0.2-1.0 [facility] Calcium [Mass/Vol] 9.1 mg/dL 8.5-10.1 [facility] Chloride [Moles/Vol] 103 mmol/L 98-107 [facility] Cholesterol [Mass/Vol] 145 mg/dL <=200 [facility] Cholesterol in HDL [Mass/Vol] 65 mg/dL High 40-60 [facility] Comment on above: > or =60 mg/dl - LOW CARDIOVASCULAR RISK<40 mg/dl - HIGH CARDIOVASCULAR RISK CO2 [Moles/Vol] 28.3 mmol/L 21.0-32.0 [facility] Creatinine [Mass/Vol] 0.78 mg/dL 0.70-1.30 [facility] GFR/1.73 sq M.predicted MDRD (S/P/Bld) [Vol rate/Area] mL/min/{1.73_m2} >=60 mL/min/1.73m 2 [facility] Glucose [Mass/Vol] 91 mg/dL 74-106 [facility] Potassium [Moles/Vol] 4.1 mmol/L 3.5-5.1 [facility] Protein [Mass/Vol] 7.3 g/dL 6.4-8.2 [facility] Sodium [Moles/Vol] 138 mmol/L 136-145 [facility] Triglyceride [Mass/Vol] 57 mg/dL <=150 [facility] Urea nitrogen [Mass/Vol] 9.0 mg/dL 7.0-18.0 [facility] Urea nitrogen/Creatinine [Mass ratio] 11.5 mg/mg [facility] Laboratory - Hematology and Cell countsOrdered By: Coy Land on 01-15-2025 Immature granulocytes/100 WBC (Bld) 0.4 % 0.0-0.5 [facility] Leukocytes [#/volume] correc beatriz for nucleated erythrocytes in Blood by Automated counOrdered By: Coy Land on 01-15-2025 WBC corrected for nucl RBC Auto (Bld) [#/Vol] 9.3 10 3/uL 4.0-11.0 [facility] Lymphocytes Auto (Bld) [#/Vo l]Ordered By: Coy Land on 01-15-2025 Lymphocytes (Bld) [#/Vol] 3.5 10 3/uL 1.2-3.8 [facility] Lymphocytes/100 WBC Auto (Bl d)Ordered By: Coy Land on 01-15-2025 Lymphocytes/100 WBC (Bld) 38.0 % 20.5-60.0 [facility] MCH Auto (RBC) [Entitic mass ]Ordered By: Coy Land on 01-15-2025 MCH (RBC) [Entitic mass] 31.8 pg 25.9-34.0 [facility] MCHC Auto (RBC) [Mass/Vol]Or dered By: Coy Land on 01-15-2025 MCHC (RBC) [Mass/Vol] 35.9 g/dL High 29.9-35.2 [facility] MCV Auto (RBC) [Entitic vol] Ordered By: Coy Land on 01-15-2025 MCV (RBC) [Entitic vol] 88.5 fL 80.0-94.0 [facility] Monocytes Auto (Bld) [#/Vol] Ordered By: Coy Land on 01-15-2025 Monocytes (Bld) [#/Vol] 0.7 10 3/uL 0.3-0.8 [facility] Monocytes/100 WBC Auto (Bld) Ordered By: Coy Land on 01-15-2025 Monocytes/100 WBC (Bld) 7.9 % 1.7-12.0 [facility] Neutrophils Auto (Bld) [#/Vo l]Ordered By: Coy Ladn on 01-15-2025 Neutrophils (Bld) [#/Vol] 4.8 10 3/uL 1.4-6.5 [facility] Neutrophils/100 WBC Auto (Bl d)Ordered By: Coy Land on 01-15-2025 Neutrophils/100 WBC (Bld) 52.1 % 43.0-75.0 [facility] No Panel InformationOrdered By: Coy Land on 01-15-2025 Eosinophils # (Auto) 0.1 10 3/uL 0.0-0.7 [facility] Immature Granulocyte # (Auto) 0.04 10 3/uL High 0.00-0.03 [facility] Platelet mean volume Auto (B ld) [Entitic vol]Ordered By: Coy Land on 01-15-2025 Platelet mean volume (Bld) [Entitic vol] 9.9 fL 9.5-13.5 [facility] Platelets Auto (Bld) [#/Vol] Ordered By: Coy Land on 01-15-2025 Platelets (Bld) [#/Vol] 331 10 3/uL 150-450 [facility] RBC Auto (Bld) [#/Vol]Ordere d By: Coy Land on 01-15-2025 RBC (Bld) [#/Vol] 4.69 10 6/uL Low 4.70-6.10 [facility] Serum or plasma albumin/glob ulin mass ratioOrdered By: Coy Land on 01-15-2025 Albumin/Globulin [Mass ratio] 1.1 {ratio} [facility] Serum or plasma anion gap de terminationOrdered By: Coy Land on 01-15-2025 Anion gap [Moles/Vol] 10.8 mmol/L [facility] Serum or plasma total choles terol/high density lipoprotein (HDL) cholesterol mass ratOrdered By: Coy Land on 01-15-2025 Cholesterol.total/Choles terol in HDL [Mass ratio] 2.2 {ratio} [facility] Comment on above: 3.3 - 4.4 LOW RISK4. 4 - 7.1 AVERAGE RISK7.1 - 11.0 MODERATE RISK>11.0 HIGH RISK Office Visiton 01-05-2025 Follow-up visit [id number] Cullen Ragland 1950 M Date Provider Department Center 01/05/2025 COY FLORES BOOGIE [facility] Family History Problem Relation Age of Onset Stroke Mother Heart failure Mother Family Status - Relation Status Age at Mother Father Level of Service:31837 NE OFFICE/OUTPATIENT ESTABLISHED MOD MDM 30 MIN Normal [facility] ECHOCARDIO M/2D COMPLETEon 0 12-12-2022 ECHOCARDIO M/2D COMPLETE Patient: CULLEN RAGLAND Exam Date: 12/12/2022 : 1950 Gender:M Ordering : NORMA CLARK Admission #: [id number] Family : Order #: [id number] CLICK HERE TO VIEW EXAM ECHOCARDIOGRAM REPORT [...] M.D. on 12/12/2022 at 18:04 Normal [facility] CBC AUTO DIFFon 06-05-2022 BASO # 0.0 103/ul Normal 0.0-0.1 [facility] Comment on above: Performed By: #### C BC ####[facility] [address] [place], [place] [address]DrPhani Abdi Basophils/100 WBC (Bld) 0.3 % Normal 0.2-2.0 [facility] Comment on above: Performed By: #### C BC ####[facility] [address] [place], [place] [address]DrPhani Abdi EO # 0.1 103/ul Normal 0.0-0.7 [facility] Comment on above: Performed By: #### C BC ####[facility] [address] [place], [place] [address]DrPhani Abdi Eosinophils/100 WBC (Bld) 0.8 % Critically low 0.9-7.0 [facility] Comment on above: Performed By: #### C BC ####[facility] [address] [place], [place] [address]DrPhani Abdi Erythrocyte distribution width (RBC) [Ratio] 14.4 % Normal 11.0-15.0 [facility] Comment on above: Performed By: #### C BC ####[facility] [address] [place], [place] [address]DrPhani Abdi Hematocrit (Bld) [Volume fraction] 39.8 % Critically low 42.0-54.0 [facility] Comment on above: Performed By: #### C BC ####[facility] [address] [place], [place] [address]DrPhani Abdi Hemoglobin (Bld) [Mass/Vol] 14.2 g/dL Normal 14.0-18.0 [facility] Comment on above: Performed By: #### C BC ####[facility] [address] [address]Dr. Hayley Abdi IG # 0.05 10e3/ul Critically high 0.00-0.03 [facility] Comment on above: Performed By: #### C BC ####[facility] [address] [address]Dr. Hayley Abdi IG % 0.4 % Normal 0.0-0.5 [facility] Comment on above: Performed By: #### C BC ####[facility] [address] [place], [place] [address]Dr. Hayley Abdi LYMPH # 4.1 103/ul Critically high 1.2-3.8 [facility] Comment on above: Performed By: #### C BC ####[facility] [address] [place], [place] [address]Dr. Hayley Abdi Lymphocytes/100 WBC (Bld) 34.7 % Normal 20.5-60.0 [facility] Comment on above: Performed By: #### C BC ####[facility] [address] [place], [place] [address]Dr. Hayley Abdi MANUAL DIFF REQ NO Normal [facility] Comment on above: Performed By: #### C BC ####[facility] [address] [place], [place] [address]Dr. Hayley Abdi MCH (RBC) [Entitic mass] 31.8 pg Normal 25.9-34.0 [facility] Comment on above: Performed By: #### C BC ####[facility] [address] [place], [place] [address]Dr. Hayley Abdi MCHC (RBC) [Mass/Vol] 35.7 g/dL Critically high 29.9-35.2 [facility] Comment on above: Performed By: #### C BC ####[facility] [address] [place], [place] [address]Dr. Hayley Abdi MCV (RBC) [Entitic vol] 89.0 fL Normal 80.0-94.0 [facility] Comment on above: Performed By: #### C BC ####[facility] [address] [address]DrPhani Hayley Abdi MONO # 0.9 103/ul Critically high 0.3-0.8 [facility] Comment on above: Performed By: #### C BC ####[facility] [address] [place], [place] [address]DrPhani Hayley Jin Monocytes/100 WBC (Bld) 7.2 % Normal 1.7-12.0 [facility] Comment on above: Performed By: #### C BC ####[facility] [address] [place], [place] [address]DrPhani Hayley Abdi NEUT # 6.7 103/ul Critically high 1.4-6.5 [facility] Comment on above: Performed By: #### C BC ####[facility] [address] [place], [place] [address]Dr. Hayley Jin Neutrophils/100 WBC (Bld) 56.6 % Normal 43.0-75.0 [facility] Comment on above: Performed By: #### C BC ####[facility] [address] [place], [place] [address]Dr. Hayley Jin Platelet mean volume (Bld) [Entitic vol] 9.4 fL Critically low 9.5-13.5 [facility] Comment on above: Performed By: #### C BC ####[facility] [address] [place], [place] [address]Dr. Lucretiajack Jin PLT 325 103/ul Normal 150-450 [facility] Comment on above: Performed By: #### C BC ####[facility] [address] [place], [place] [address]DrPhani Abdi RBC 4.47 106/ul Critically low 4.70-6.10 [facility] Comment on above: Performed By: #### C BC ####[facility] [address] [place], [place] [address]Dr. Hayley Abdi WBC 11.9 103/ul Critically high 4.0-11.0 [facility] Comment on above: Performed By: #### C BC ####[facility] [address] [address]Dr. Hayley Abdi PROF CHEM 8 (BAS METB)on Anion gap [Moles/Vol] 8.2 mmol/L Normal [facility] Comment on above: Performed By: #### B MP #### [facility] [address] [address] [address] Hayley Abdi Calcium [Mass/Vol] 9.2 mg/dL Normal 8.5-10.1 [facility] Comment on above: Performed By: #### B MP #### [facility] [address] [address] [address] Hayley Abdi Chloride [Moles/Vol] 102 mmol/L Normal 98-107 [facility] Comment on above: Performed By: #### B MP #### [facility] [address] [address] [address] Hayley Abdi CO2 [Moles/Vol] 30.9 mmol/L Normal 21.0-32.0 [facility] Comment on above: Performed By: #### B MP #### [facility] [address] [address] [address] Hayley Abdi Creatinine [Mass/Vol] 0.84 mg/dL Normal 0.70-1.30 [facility] Comment on above: Performed By: #### B MP #### [facility] [address] [address] [address] Hayley Abdi EGFR-AF AZERBAIJANI >60 Normal >=60 [facility] Comment on above: Performed By: #### B MP #### [facility] [address] [address] [address] Hayley Abdi EGFR-NON AF AZERBAIJANI >60 Normal >=60 [facility] Comment on above: Performed By: #### B MP #### [facility] [address] [address] [address] Hayley Abdi Glucose [Mass/Vol] 100 mg/dL Normal 74-106 [facility] Comment on above: Performed By: #### B MP #### [facility] [address] [place] [address] Dr. Hayley Abdi Potassium [Moles/Vol] 4.1 mmol/L Normal 3.5-5.1 [facility] Comment on above: Performed By: #### B MP #### [facility] [address] [address] [address] Hayley Abdi Sodium [Moles/Vol] 137 mmol/L Normal 136-145 [facility] Comment on above: Performed By: #### B MP #### [facility] [address] [place] [address] Dr. Hayley Abdi Urea nitrogen [Mass/Vol] 12.0 mg/dL Normal 7.0-18.0 [facility] Comment on above: Performed By: #### B MP #### [facility] [address] [place] [address] Dr. Hayley Abdi Urea nitrogen/Creatinine [Mass ratio] 14.3 mg/mg Normal [facility] Comment on above: Performed By: #### B MP #### [facility] [address] [place] [address] Dr. Hayley Abdi LIPID PROFILEon 04-04-2022 CHOL-HDL RATIO NORM SEE BELOW Normal [facility] Comment on above: Result Comment: 3.3 - 4.4 LOW RISK 4.4 - 7.1 AVERAGE RISK 7.1 - 11.0 MODERATE RISK >11.0 HIGH RISK Performed By: #### L IPID #### [facility] [address] [place] [address] Dr. Hayley Abdi Cholesterol [Mass/Vol] 151 mg/dL Normal <=200 [facility] Comment on above: Performed By: #### L IPID #### [facility] [address] [place] [address] Dr. Hayley Abdi Cholesterol in HDL [Mass/Vol] 66 mg/dL Critically high 40-60 [facility] Comment on above: Performed By: #### L IPID #### [facility] [address] [address] [address] Hayley Abdi Cholesterol in LDL [Mass/Vol] 73.6 mg/dL Normal [facility] Comment on above: Performed By: #### L IPID #### [facility] [address] [place] [address] Dr. Hayley Abdi Cholesterol.total/Choles terol in HDL [Mass ratio] 2.3 {ratio} Normal [facility] Comment on above: Performed By: #### L IPID #### [facility] [address] [place] [address] Dr. Hayley Abdi HDL NORMAL > or = 60 mg/dl - LOW CARDIOVASCULAR RISK <40 mg/dl - HIGH CARDIOVASCULAR RISK Normal [facility] Comment on above: Performed By: #### L IPID #### [facility] [address] [place] [address] Dr. Hayley Abdi LDL CALC NORMAL SEE BELOW Normal [facility] Comment on above: Result Comment: <100 mg/dl OPTIMAL 100 - 129 mg/dl NEAR OR ABOVE OPTIMAL 130 - 159 mg/dl BORDERLINE HIGH 160 - 189 mg/dl HIGH >190 mg/dl VERY HIGH Performed By: #### L IPID #### [facility] [address] [place] [address] Dr. Hayley Abdi Triglyceride [Mass/Vol] 57 mg/dL Normal <=150 [facility] Comment on above: Performed By: #### L IPID #### [facility] [address] [place] [address] Dr. Hayley Abdi VLDL CALC 11.4 mg/dL Normal [facility] Comment on above: Performed By: #### L IPID #### [facility] [address] [place] [address] Dr. Hayley Adbi NM STRESS/REST MULTIon 04-04 NM STRESS/REST MULTI Patient: KATHLEEN RAGLAND Exam Date: 04/04/2022 : 1950 Gender:M Ordering : DR COY LAND M.D. Admission #: [id number] Family : Order #: [id number] CLICK HERE TO VIEW EXAM RADIOLOGY REPORT [...] Toney MD on 04/05/2022 at 08:13 Normal [facility] US ABD AORTA SCREENINGon US ABD AORTA SCREENING EXAMINATION: US A BD AORTA SCREENING HISTORY: Smoker COMPARISON: No relevant [...] by: BA TONEY Date: 2022-04-04 09:28 Normal [facility] CT LUNG CANCER SCREENINGon 0 03-24-2022 [...] by: URIAH RUIZ Date: 2022-03-24 11:48 Normal [facility] ECHOCARDIO M/2D COMPLETEon 0 03-24-2022 ECHOCARDIO M/2D COMPLETE Patient: CULLEN RAGLAND Exam Date: 03/24/2022 : 1950 Gender:M Ordering : DR SUZANNE DUTTON M.D. Admission #: [id number] Family : Order #: [id number] CLICK HERE TO VIEW EXAM ECHOCARDIOGRAM REPORT [...] M.D. on 03/24/2022 at 15:09 Normal [facility] CBC AUTO DIFFon 03-09-2022 BASO # 0.0 103/ul Normal 0.0-0.1 [facility] Comment on above: Performed By: #### C BC #### [facility] [address] [address] [address] Hayley Abdi Basophils/100 WBC (Bld) 0.3 % Normal 0.2-2.0 [facility] Comment on above: Performed By: #### C BC #### [facility] [address] [place] [address] Dr. Hayley Abdi EO # 0.2 103/ul Normal 0.0-0.7 [facility] Comment on above: Performed By: #### C BC #### [facility] [address] [place] [address] Dr. Hayley Abdi Eosinophils/100 WBC (Bld) 1.7 % Normal 0.9-7.0 [facility] Comment on above: Performed By: #### C BC #### [facility] [address] [place] [address] Dr. Hayley Abdi Erythrocyte distribution width (RBC) [Ratio] 14.3 % Normal 11.0-15.0 [facility] Comment on above: Performed By: #### C BC #### [facility] [address] [place] [address] Dr. Hayley Abdi Hematocrit (Bld) [Volume fraction] 40.6 % Critically low 42.0-54.0 [facility] Comment on above: Performed By: #### C BC #### [facility] [address] [place] [address] Dr. Hayley Abdi Hemoglobin (Bld) [Mass/Vol] 14.6 g/dL Normal 14.0-18.0 [facility] Comment on above: Performed By: #### C BC #### [facility] [address] [place] [address] Dr. Hayley Abdi IG # 0.05 10e3/ul Critically high 0.00-0.03 [facility] Comment on above: Performed By: #### C BC #### [facility] [address] [place] [address] Dr. Hayley Abdi IG % 0.4 % Normal 0.0-0.5 [facility] Comment on above: Performed By: #### C BC #### [facility] [address] [address] [address] Hayley Abdi LYMPH # 3.4 103/ul Normal 1.2-3.8 [facility] Comment on above: Performed By: #### C BC #### [facility] [address] [address] [address] Hayley Abdi Lymphocytes/100 WBC (Bld) 30.0 % Normal 20.5-60.0 [facility] Comment on above: Performed By: #### C BC #### [facility] [address] [address] [address] Hayley Abdi MANUAL DIFF REQ NO Normal [facility] Comment on above: Performed By: #### C BC #### [facility] [address] [place] [address] Dr. Hayley Abdi MCH (RBC) [Entitic mass] 32.4 pg Normal 25.9-34.0 [facility] Comment on above: Performed By: #### C BC #### [facility] [address] [place] [address] Dr. Hayley Abdi MCHC (RBC) [Mass/Vol] 36.0 g/dL Critically high 29.9-35.2 [facility] Comment on above: Performed By: #### C BC #### [facility] [address] [place] [address] Dr. Hayley Abdi MCV (RBC) [Entitic vol] 90.2 fL Normal 80.0-94.0 [facility] Comment on above: Performed By: #### C BC #### [facility] [address] [place] [address] Dr. Hayley Abdi MONO # 1.0 103/ul Critically high 0.3-0.8 [facility] Comment on above: Performed By: #### C BC #### [facility] [address] [place] [address] Dr. Hayley Abdi Monocytes/100 WBC (Bld) 9.1 % Normal 1.7-12.0 [facility] Comment on above: Performed By: #### C BC #### [facility] [address] [place] [address] Dr. Hayley Abdi NEUT # 6.7 103/ul Critically high 1.4-6.5 [facility] Comment on above: Performed By: #### C BC #### [facility] [address] [place], [place] [id number] Dr. Hayley Abdi Neutrophils/100 WBC (Bld) 58.5 % Normal 43.0-75.0 [facility] Comment on above: Performed By: #### C BC #### [facility] [address] [place] [address] Dr. Hayley Abdi Platelet mean volume (Bld) [Entitic vol] 9.9 fL Normal 9.5-13.5 [facility] Comment on above: Performed By: #### C BC #### [facility] [address] [place] [address] Dr. Hayley Abdi PLT 305 103/ul Normal 150-450 [facility] Comment on above: Performed By: #### C BC #### [facility] [address] [place] [address] Dr. Hayley Abdi RBC 4.50 106/ul Critically low 4.70-6.10 [facility] Comment on above: Performed By: #### C BC #### [facility] [address] [place], [place] [id number] Dr. Hayley Abdi WBC 11.4 103/ul Critically high 4.0-11.0 [facility] Comment on above: Performed By: #### C BC #### [facility] [address] [place] [address] Dr. Hayley Abdi [facility]14 SARS-CoV-2 (COVID-19) RNA DEDRA+probe Ql (Unsp spec) Not detected Normal NOT DETECTED [facility] Comment on above: Result Comment: [...] for this test is supported by the [employer]'s declaration that [...] used). Performed By: #### C VDTBH #### [facility] [address] [place] [address] Dr. Hayley Abdi PROF 14(COMP METB)on 022 Albumin [Mass/Vol] 4.0 g/dL Normal 3.4-5.0 [facility] Comment on above: Performed By: #### C NIKHIL HSTROPN, TSH #### [facility] [address] [place] [address] Dr. Hayley Abdi Albumin/Globulin [Mass ratio] 1.1 {ratio} Normal [facility] Comment on above: Performed By: #### C NIKHIL HSTROPN, TSH #### [facility] [address] [place] [address] Dr. Hayley Abdi ALP [Catalytic activity/Vol] 68 U/L Normal 46-116 [facility] Comment on above: Performed By: #### C NIKHIL HSTROPN, TSH #### [facility] [address] [place] [address] Dr. Hayley Abdi ALT [Catalytic activity/Vol] 16 U/L Normal 16-63 [facility] Comment on above: Performed By: #### C NIKHIL HSTROPN, TSH #### [facility] [address] [place] [address] Dr. Hayley Abdi Anion gap [Moles/Vol] 14.5 mmol/L Normal [facility] Comment on above: Performed By: #### C NIKHIL HSTROPN, TSH #### [facility] [address] [place] [address] Dr. Hayley Abdi AST [Catalytic activity/Vol] 15 U/L Normal 15-37 [facility] Comment on above: Performed By: #### C MP, HSTROPN, TSH #### [facility] [address] [address] [address] Hayley Abdi Bilirubin [Mass/Vol] 1.2 mg/dL Critically high 0.2-1.0 [facility] Comment on above: Performed By: #### C MP, HSTROPN, TSH #### [facility] [address] [address] [address] Hayley Abdi Calcium [Mass/Vol] 9.1 mg/dL Normal 8.5-10.1 [facility] Comment on above: Performed By: #### C MP, HSTROPN, TSH #### [facility] [address] [place] [address] Dr. Hayley Abdi Chloride [Moles/Vol] 103 mmol/L Normal 98-107 [facility] Comment on above: Performed By: #### C MP, HSTROPN, TSH #### [facility] [address] [place] [address] Dr. Hayley Abdi CO2 [Moles/Vol] 23.5 mmol/L Normal 21.0-32.0 [facility] Comment on above: Performed By: #### C MP, HSTROPN, TSH #### [facility] [address] [place] [address] Dr. Hayley Abdi Creatinine [Mass/Vol] 0.94 mg/dL Normal 0.70-1.30 [facility] Comment on above: Performed By: #### C MP, HSTROPN, TSH #### [facility] [address] [place] [address] Dr. Hayley Abdi EGFR-AF AZERBAIJANI >60 Normal >=60 [facility] Comment on above: Performed By: #### C MP, HSTROPN, TSH #### [facility] [address] [place] [address] Dr. Hayley Abdi EGFR-NON AF AZERBAIJANI >60 Normal >=60 [facility] Comment on above: Performed By: #### C MP, HSTROPN, TSH #### [facility] [address] [address] [address] Hayley Abdi Globulin (S) [Mass/Vol] 3.5 g/dL Normal [facility] Comment on above: Performed By: #### C MP, HSTROPN, TSH #### [facility] [address] [address] [address] Hayley Abdi Glucose [Mass/Vol] 89 mg/dL Normal 74-106 [facility] Comment on above: Performed By: #### C MP, HSTROPN, TSH #### [facility] [address] [place] [address] Dr. Hayley Abdi Potassium [Moles/Vol] 4.0 mmol/L Normal 3.5-5.1 [facility] Comment on above: Performed By: #### C MP, HSTROPN, TSH #### [facility] [address] [place] [address] Dr. Hayley Abdi Protein [Mass/Vol] 7.5 g/dL Normal 6.4-8.2 [facility] Comment on above: Performed By: #### C MP, HSTROPN, TSH #### [facility] [address] [place] [address] Dr. Hayley Abdi Sodium [Moles/Vol] 137 mmol/L Normal 136-145 [facility] Comment on above: Performed By: #### C MP, HSTROPN, TSH #### [facility] [address] [place] [address] Dr. Hayley Abdi Urea nitrogen [Mass/Vol] 15.0 mg/dL Normal 7.0-18.0 [facility] Comment on above: Performed By: #### C MP, HSTROPN, TSH #### [facility] [address] [place] [address] Dr. Hayley Abdi Urea nitrogen/Creatinine [Mass ratio] 16.0 mg/mg Normal [facility] Comment on above: Performed By: #### C MP, HSTROPN, TSH #### [facility] [address] [place], [place] [address] Dr. Hayley Abdi PROTIMEon 03-09-2022 INR Coag (PPP) [Relative time] 1.12 {INR} Normal [facility] Comment on above: Performed By: #### P TT, PT ####[facility] [id number] [id number] Abdi INR GUIDELINES SEE BELOW Normal [facility] Comment on above: Result Comment: KRIS RED INR: 2.0 - 3.0 CONDITIONS NOT LISTED BELOW 2.5 - 3.5 FOR PROSTHETIC HEART VALVE REPLACEMENT 2.5 - 3.5 RECURRENT THROMBOSIS Performed By: #### P TT, PT ####[facility] [id number] [address]Dr. Hayley Abdi PT Coag (PPP) [Time] 12.0 s Critically high 9.0-11.6 [facility] Comment on above: Performed By: #### P TT, PT ####[facility] [id number] [address]DrPhani Abdi PTTon 03-09-2022 aPTT Coag (Bld) [Time] 29.4 s Normal 22.3-36.2 [facility] Comment on above: Performed By: #### P TT, PT ####[facility] [id number] [address]DrPhani Abdi TROPONIN, HIGH SENSITIVITYon 03-09-2022 HSTROP 24.8 pg/mL Normal 4.0-76.1 [facility] Comment on above: Result Comment: CUT- OFF POINTS HAVE BEEN ESTABLISHED BASED ON THE FOURTH UNIVERSAL DEFINITIONS OF MYOCARDIAL INFARCTION. THE UPPER REFERENCE LIMIT (URL) OF TROPONIN, DEFINED THE 99TH PERCENTILE OF cTnI DISTRIBUTION IN A REFERENCE POPULATION, HAS BEEN CONFIRMED THE DECISION THRESHOLD FOR LA DIAGNOSIS. Performed By: #### C MP, HSTROPN, TSH ####[facility] [id number] [address]DrPhani Abdi TSHon 03-09-2022 TSH 1.141 uIU/mL Normal 0.358-3.740 [facility] Comment on above: Performed By: #### C MP, HSTROPN, TSH ####[facility] [id number] [place], [place] [address]OwPhani Abdi XR CHEST 1 Von 03-09-2022 XR CHEST 1 V EXAMINATION: XR CHEST 1 V HISTORY: Atrial fibrillation COMPARISON: No [...] by: URIAH RUIZ Date: 2022-03-09 14:53 Normal [facility] Vital Signs Date Time Vital Sign Value Performing Clinician Facility 01-26-2025 13:12-0400 Body height 180.34 cm Suzanne Dutton MD Work Phone: [facility] 01-26-2025 13:12-0400 Body mass index (BMI) [Ratio] 22.6 kg/m2 Suzanne Dutton MD Work Phone: [facility] 01-26-2025 13:12-0400 Body weight 73.53 kg Suzanne Dutton MD Work Phone: [facility] 01-26-2025 13:12-0400 Diastolic blood pressure 83 mm[Hg] Suzanne Dutton MD Work Phone: [facility] 01-26-2025 13:12-0400 Heart rate 58 /min Suzanne Dutton MD Work Phone: [facility] 01-26-2025 13:12-0400 Respiratory rate 14 /min Suzanne Dutton MD Work Phone: [facility] 01-26-2025 13:12-0400 SaO2% (BldA) [Mass fraction] 98 % Suzanne Dutton MD Work Phone: [facility] 01-26-2025 13:12-0400 Systolic blood pressure 149 mm[Hg] Suzanne Dutton MD Work Phone: [facility] 04-04-2023 11:00-0400 Body height 180.34 cm Suzanne Dutton Other [facility] Other 04-04-2023 11:00-0400 Body mass index (BMI) [Ratio] 22.73 kg/m2 Suzanne Dutton Other [facility] [employer] Other 04-04-2023 11:00-0400 Body weight 73.94 kg Suzanne Dutton Other [facility] Other 04-04-2023 11:00-0400 Diastolic blood pressure 69 mm[Hg] Suzanne Dutton Other [facility] Other 04-04-2023 11:00-0400 Systolic blood pressure 148 mm[Hg] Suzanne Dutton Other [facility] [employer] Other Encounters Encounter Date Encounter Type Care Provider Facility Start: 01-26-2025 End: 01-26-2025 ambulatory Suzanne Dutton MD Work Phone: [facility] Work Phone: Start: 01-26-2025 End: 01-26-2025 Patient encounter procedure Suzanne Dutton MD -[facility] Work Phone: Start: 01-15-2025 Non-patient / Non-visit Coy Land MD -[facility] [employer] Work Phone: Start: 01-05-2025 End: 01-05-2025 ambulatory COY ELKINSPHILIPP [facility] Start: 04-04-2023 (PROC) PROCEDURE Suzanne MCMILLAN [facility] Start: 04-04-2023 End: 04-04-2023 ambulatory Suzanne Dutton Other [facility] [employer] Other Start: 12-12-2022 End: 12-13-[address] [...] Start: 07-04-2018 General examination of patient Suzanne Laverne Other Start: 07-04-2018 Screening for malign ant neoplasm of colon Suzanne Dutton Other Start: 07-04-2018 Screening for malign ant neoplasm of prostate Suzanne Dutton Other Screening for malign ant neoplasm of prostate Suzanne Dutton Other Plan of Treatment Date Care Activity Detail Author [facility] Immunizations Immunization Date Immunization Notes Care Provider Fa cility 08-02-2020 zoster vaccine, live Suzanne Dutton Other [facility] 07-04-2018 pneumococcal Conjuga te, unspecified formulation; Translations: [Need for prophylactic vaccination against Streptococcus pneumoniae (pneumococcus)] Suzanne Dutton Other [facility] Other 07-04-2018 pneumococcal polysaccharide vaccine, 23 valent Suzanne Dutton Other [facility] Payers Date Payer Category Payer Medicare [id number] 1958 Self-pay [id number] 1950 Unknown [id number] 2.16.84 [id number] 1950 Unknown [id number] 1950 Unknown [id number] 2.16.84 [id number] 1950 Unknown [id number] 2.16.84 [id number] 1950 Unknown [id number] 2.16.84 [id number] 1950 Unknown [id number] 2.16.84 [id number] Social History Date Type Detail Facility Unknown if ever smoked [facility] Other Sex Assigned At Sex Assigned At Bir th [facility] Other Start: 01-26-2025 Tobacco smoking status NHIS Ex-smoker (finding) [facility] Sex Male (finding) [facility] Start: 1950 Sex Assigned At Male F [facility] Progress note 01-05-2025 Note Date & Type Note Facility 01-05-2025 Note [place] [facility] Subjective Cullen Ragland is a [...] Chest pressure Palpitations PAF (paroxysmal atrial fibrillation) ([facility]) Lightheadedness Mixed hyperlipidemia Essential hypertension Smoker Claudication [...] atrial fibrillation when he presented to the [facility] emergency room on 03/09/2022. He [...] and atraumatic. Nose: (more content not included)... [facility] Evaluation note 04-04-2023 Note Date & Type Note Facility 04-04-2023 Evaluation note Encounter Date Diagnosis Assessment Notes Mar, Bilateral impacted cerumen (ICD-10 - H61.23) L removal sucessful. moderate pain and bleeding in L distal canal. Will cover w antibiotic ear drops and call if further concerns. [facility] Other Clinical Note 04-04-2022 Note Date & [...] test to be dictated by Radiology. [facility] Evaluation note Note Date & Type Note Facility Evaluation note Diagnosis Onset Date Resolution Family history of diabetes mellitus acute January 26 1:05pm Personal history of nicotine dependence acute January 26 025 1:05pm Screening PSA (prostate specific antigen) acute January 26, 2025 1:05pm [facility] Work Phone: History general Narrative - Reported Note Date & Type Note Facility History general Narrative - Reported Type Medical History hyperlipidemia Medical History hypertension Surgical History hernia [facility] Other Reason for referral (narrative) Note Date & Type Note Facility Reason for referral (narrative) No reason for referral information available [facility] Work Phone: Summary Purpose Family History Relationship Condition Age at Onset Recorded Date/T mack father Unknown Diabetes mellitus Unknown mother Hypertension Unknown Heart disease Unknown History of stroke Unknown Unknown Advance Directives Advance Directive Response Recorded Date/ Time Advance Directives No January 13 8:50am Chief Complaint and Reason for Visit Chief Complaint Admit Date wellness January 26, 2025 1:05 pm Reason for Visit Admit Date Family history of diabetes mellitus January 26, 2025 1:05pm Personal history of nicotine dependence January 26, 2025 1:05pm Screening PSA (prostate specific antigen ) January 26, 2025 1:05pm Additional Source Comments (unrecognized sect ion and content) No Status Records FoundNo Status Records Found INFORMATION SOURCE (unrecogn ized section and content) DATE CREATED AUTHOR 12/22/2022 [facility] DATE CREATED AUTHOR AUTHOR'S SWATHI PINA 01/24/2025 [facility] REASON FOR VISIT (unrecogniz ed section and content) ear cleaning Care Teams (unrecognized sec tion and content) Team Status: Active Member Role Status Dates Suzanne Dutton MD Primary Care Provider Active Team Status: Active Member Role Status Dates Suzanne Dutton MD Primary Care Provider Active Start: January 15, 2025 Coy Land MD Attending Provider Active Start: January 15, 2025 Team Status: Inactive Member Role Status Dates Suzanne Dutton MD Primary Care Provider Active Start: January 26, 2025 End: January 26, 2025 Suzanne Dutton MD Attending Provider Active St art: January 26, 2025 End: January 26, 2025 Goals (unrecognized section and content) Goals may be documented in a n alternate section FOR RECORDS PERTAINING TO PATIENTS WHO ARE [...] BE BASED ON THE PRIMARY CLINICAL RECORDS. [facility] [employer] provides no warranty or guarantee of the accuracy or completeness of information in this document.
== END 2025-03-12 14:04 | disposition home or self-care (01) ==
LOC: CT 14:03
PROVIDERS: PCP Family Medicine; Visit Provider Family Medicine
DX: R91.8 Other nonspecific abnormal finding of lung field (principal); Z87.891 Personal history of nicotine dependence; J44.9 Chronic obstructive pulmonary disease, unspecified
CPT/HCPCS: 71250